=== PATIENT | male | born 1965 | race Caucasian/White ===

== ENCOUNTER → 2016-09-01 | Outpatient (CLI) | payer MEDICAID ==
[~2016-09-01] MED LIST: ASPI-621 PO; ATOR40TA78 PO; FURO20TA3 PO; ISOS60TA36 PO; LISI2.5T PO; METO25TA35 PO; OMNIPAQUE 350 MG/ML, 100ML BOTTLE ONE; SPIR25TA3 PO
== END | disposition home or self-care (01) ==
LOC: RAD 09:20
PROVIDERS: ATTEND Internal Medicine Gastroenterology
DX: K86.3 Pseudocyst of pancreas (principal); J90 Pleural effusion, not elsewhere classified; N20.9 Urinary calculus, unspecified; N20.0 Calculus of kidney; J98.11 Atelectasis; K76.0 Fatty (change of) liver, not elsewhere classified; R19.00 Intra-abdominal and pelvic swelling, mass and lump, unspecified site
CPT/HCPCS: 74160; Q9967

== ENCOUNTER 2016-09-02 16:21 | Inpatient (IN) | payer MEDICAID ==
[~2016-09-02] VITALS: Ht 180.3 cm; Wt 93.7 kg
[2016-09-02] MEDS ORDERED: SODIUM CHLORIDE 0.9% 1,000ML IVBOLUS ONE (17:00)
[2016-09-02] MEDS ORDERED: SODIUM CHLORIDE FLUSH 10ML SYR IVF ONE (17:00)
[2016-09-02] MEDS ORDERED: ONDANSETRON 2MG/ML, 2ML IVPush ONE (17:00)
[2016-09-02 17:18] LABS: ASPARTATE AMINO TRANSFERASE 34 U/L (15-37); BLOOD UREA NITROGEN 15 mg/dL (7-18)
[2016-09-02] MEDS ORDERED: MORPHINE SULFATE 4 MG/ML, 1ML IVPush ONE (17:30)
[2016-09-02] MEDS ORDERED: ONDANSETRON 2MG/ML, 2ML ONE (17:32)
[2016-09-02] MEDS ORDERED: MORPHINE SULFATE 4 MG/ML, 1ML ONE (17:33)
[2016-09-02] MEDS ORDERED: SODIUM CHLORIDE 0.9% 1,000 ML IV ONE (18:16)
[2016-09-02] MEDS ORDERED: MORPHINE SULFATE 4 MG/ML, 1ML IVPush PRN (18:30)
[2016-09-02] MEDS ORDERED: SODIUM CHLORIDE FLUSH 10ML SYR IVF PRN (18:30)
[2016-09-02] MEDS ORDERED: ONDANSETRON 2MG/ML, 2ML IVPush PRN (18:30)
[2016-09-02] MEDS: SODIUM CHLORIDE 0.9% 1,000 ML IV SCH (23:36)
[2016-09-03 00:32] VITALS: BP 116/78
[2016-09-03 01:12] VITALS: BP 100/66
[2016-09-03] MEDS ORDERED: SPIR25TA3 PO (01:48)
[2016-09-03] MEDS ORDERED: FURO20TA3 PO (01:48)
[2016-09-03] MEDS ORDERED: ATOR40TA78 PO (01:51)
[2016-09-03] MEDS ORDERED: ASPI-621 PO (01:54)
[2016-09-03] MEDS ORDERED: METO25TA35 PO (01:56)
[2016-09-03] MEDS ORDERED: LISI2.5T PO (02:11)
[2016-09-03] MEDS ORDERED: ISOS60TA36 PO (02:15)
[2016-09-03] MEDS: HYDROcodone/APAP 5/325 TABLET PO PRN ×4 (03:34→23:09)
[2016-09-03 05:51] LABS: ASPARTATE AMINO TRANSFERASE 29 U/L (15-37); BLOOD UREA NITROGEN 14 mg/dL (7-18)
[2016-09-03 08:48] VITALS: BP 147/92
[2016-09-03] MEDS: PANTOPROZOLE 40MG TABLET PO SCH ×2 (09:00→19:56)
[2016-09-03] MEDS: ENOXAPARIN 40 MG/0.4 ML SQ SCH (09:00)
[2016-09-03] MEDS: SODIUM CHLORIDE 0.9% 1,000 ML IV SCH ×2 (13:00→23:11)
[2016-09-03 15:51] VITALS: BP 138/93
[2016-09-03 20:38] VITALS: BP 128/88
[2016-09-04 03:00] VITALS: BP 118/81
[2016-09-04 08:49] VITALS: BP 110/74
[2016-09-04] MEDS: ENOXAPARIN 40 MG/0.4 ML SQ SCH (09:00)
[2016-09-04] MEDS: PANTOPROZOLE 40MG TABLET PO SCH ×2 (09:13→21:29)
[2016-09-04] MEDS: SODIUM CHLORIDE 0.9% 1,000 ML IV SCH ×2 (09:14→17:40)
[2016-09-04] MEDS: METOPROLOL TARTRATE 25 MG TABLET PO SCH ×2 (11:00→21:30)
[2016-09-04] MEDS: ISOSORBIDE MONONITRATE ER 60 MG TABLET PO SCH (11:00)
[2016-09-04] MEDS: LISINOPRIL 5 MG TABLET PO SCH (11:00)
[2016-09-04] MEDS: OCTREOTIDE 100MCG/ML, 1ML (0.1MG/ML) SQ SCH ×2 (12:54→21:29)
[2016-09-04 14:26] VITALS: BP 124/86
[2016-09-04 19:51] VITALS: BP 128/91
[2016-09-04] MEDS: HYDROcodone/APAP 5/325 TABLET PO PRN (22:44)
[2016-09-05 02:30] VITALS: BP 110/76
[2016-09-05] MEDS: SODIUM CHLORIDE 0.9% 1,000 ML IV SCH ×2 (04:49→15:38)
[2016-09-05 07:31] VITALS: BP 118/84
[2016-09-05] MEDS: ENOXAPARIN 40 MG/0.4 ML SQ SCH (09:00)
[2016-09-05] MEDS: ISOSORBIDE MONONITRATE ER 60 MG TABLET PO SCH (09:32)
[2016-09-05] MEDS: PANTOPROZOLE 40MG TABLET PO SCH ×2 (09:33→21:45)
[2016-09-05] MEDS: LISINOPRIL 5 MG TABLET PO SCH (09:33)
[2016-09-05] MEDS: METOPROLOL TARTRATE 25 MG TABLET PO SCH ×2 (09:33→21:45)
[2016-09-05] MEDS: OCTREOTIDE 100MCG/ML, 1ML (0.1MG/ML) SQ SCH ×2 (10:59→21:45)
[2016-09-05 12:58] VITALS: BP 104/69
[2016-09-05] MEDS: HYDROcodone/APAP 5/325 TABLET PO PRN ×2 (17:18→23:23)
[2016-09-05 20:23] VITALS: BP 103/79
[2016-09-06] MEDS: SODIUM CHLORIDE 0.9% 1,000 ML IV SCH ×2 (01:00→11:00)
[2016-09-06 03:07] VITALS: BP 101/61
[2016-09-06 05:31] LABS: ASPARTATE AMINO TRANSFERASE 19 U/L (15-37); BLOOD UREA NITROGEN 9 mg/dL (7-18)
[2016-09-06 07:30] VITALS: BP 121/82
[2016-09-06] MEDS: OCTREOTIDE 100MCG/ML, 1ML (0.1MG/ML) SQ SCH (09:00)
[2016-09-06] MEDS: ENOXAPARIN 40 MG/0.4 ML SQ SCH (09:00)
[2016-09-06] MEDS: PANTOPROZOLE 40MG TABLET PO SCH (09:00)
[2016-09-06] MEDS: LISINOPRIL 5 MG TABLET PO SCH (09:11)
[2016-09-06] MEDS: ISOSORBIDE MONONITRATE ER 60 MG TABLET PO SCH (09:11)
[2016-09-06] MEDS: METOPROLOL TARTRATE 25 MG TABLET PO SCH (09:11)
[2016-09-06] MEDS: HYDROcodone/APAP 5/325 TABLET PO PRN (11:19)
[2016-09-06 13:54] VITALS: BP 117/82
[2016-09-06] MEDS ORDERED: PANT40TA5 PO (14:12)
== END 2016-09-06 15:50 | disposition home or self-care (01) | DRG 438 ==
LOC: ED 18:14 → EDIP 18:16 → 3NE 20:00 → DCLOUNGE 09-06 15:10
PROVIDERS: ADMIT Internal Medicine; ATTEND Family Medicine
DX: K86.3 Pseudocyst of pancreas (principal); E43 Unspecified severe protein-calorie malnutrition; K31.1 Adult hypertrophic pyloric stenosis; N40.0 Benign prostatic hyperplasia without lower urinary tract symptoms; K86.1 Other chronic pancreatitis; I25.10 Atherosclerotic heart disease of native coronary artery without angina pectoris; J44.9 Chronic obstructive pulmonary disease, unspecified; G89.29 Other chronic pain; N20.0 Calculus of kidney; K21.9 Gastro-esophageal reflux disease without esophagitis; I10 Essential (primary) hypertension; I25.2 Old myocardial infarction; Z87.891 Personal history of nicotine dependence; Z90.49 Acquired absence of other specified parts of digestive tract; Z82.49 Family history of ischemic heart disease and other diseases of the circulatory system; Z68.28 Body mass index [BMI] 28.0-28.9, adult
CPT/HCPCS: 36415; 80053; 81001; 83036; 83690; 83735; 84100; 85025; 85610; 87086; 93005; 96361; 96374; 96375; J2354; J2405; C8901; J7030

== ENCOUNTER 2016-09-09 09:04 | Day surgery (SDC) | payer MEDICAID ==
[~2016-09-09] VITALS: Ht 180.3 cm; Wt 85.0 kg
[~2016-09-09 09:04] MED LIST changes: -OMNIPAQUE 350 MG/ML, 100ML BOTTLE ONE; +PANT40TA5 PO
[2016-09-09 09:26] VITALS: BP 136/94
[2016-09-09] MEDS ORDERED: LACTATED RINGERS 1,000 ML IV SCH (09:37)
[2016-09-09] MEDS ORDERED: MIDAZOLAM 1 MG/ML, 2ML ONE (10:02)
[2016-09-09] MEDS ORDERED: FENTANYL PF 100 MCG/2ML ONE (10:04)
[2016-09-09] MEDS ORDERED: PROPOFOL 10 MG/ML, 20ML ONE (10:53)
[2016-09-09] MEDS ORDERED: ONDANSETRON 2MG/ML, 2ML ONE (10:53)
[2016-09-09] MEDS ORDERED: DEXAMETHASONE 4 MG/ML, 1ML ONE (10:53)
[2016-09-09] MEDS ORDERED: HYDROmorphone 1 MG/ML, 1ML IV PRN (11:30)
[2016-09-09] MEDS ORDERED: ONDANSETRON 2MG/ML, 2ML IVPush PRN (11:30)
[2016-09-09] MEDS ORDERED: FENTANYL PF 100 MCG/2ML IV PRN (11:30)
[2016-09-09] MEDS ORDERED: MIDAZOLAM 1 MG/ML, 2ML IV PRN (11:30)
[2016-09-09] MEDS ORDERED: OXYcodone 5 MG/5 ML ORAL.SOL UDC PO PRN (11:30)
== END 2016-09-09 14:35 | disposition home or self-care (01) ==
LOC: OUT 09:04
PROVIDERS: ATTEND Internal Medicine Gastroenterology
DX: K86.3 Pseudocyst of pancreas (principal); I25.10 Atherosclerotic heart disease of native coronary artery without angina pectoris; J44.9 Chronic obstructive pulmonary disease, unspecified; K21.9 Gastro-esophageal reflux disease without esophagitis; Z90.49 Acquired absence of other specified parts of digestive tract; Z87.891 Personal history of nicotine dependence
CPT/HCPCS: 43240; C1874; J1100; J2250; J2405; J2704; J3010; J7120

== ENCOUNTER 2016-09-10 16:16 | Inpatient (IN) | payer MEDICAID ==
[~2016-09-10] VITALS: Ht 180.3 cm; Wt 81.0 kg
[2016-09-10] MEDS ORDERED: SODIUM CHLORIDE FLUSH 10ML SYR IVF ONE (18:30)
[2016-09-10] MEDS ORDERED: SODIUM CHLORIDE 0.9% 1,000ML IVBOLUS ONE (18:30)
[2016-09-10 19:02] LABS: ASPARTATE AMINO TRANSFERASE 13 U/L (15-37); BLOOD UREA NITROGEN 12 mg/dL (7-18)
[2016-09-10] MEDS ORDERED: PIPERACILLIN/TAZO/PMX 3.375GM 50 ML ONE (19:25)
[2016-09-10] MEDS ORDERED: PIPERACILLIN/TAZO 3.375 GM in SODIUM CHLORIDE 0.9% 50 ML IVPB ONE (19:30)
[2016-09-10] MEDS ORDERED: ACETAMINOPHEN 325 MG TABLET PO ONE ×2 (19:30→22:30)
[2016-09-10] MEDS ORDERED: MORPHINE SULFATE 4 MG/ML, 1ML IVPush PRN (19:30)
[2016-09-10] MEDS ORDERED: ONDANSETRON 2MG/ML, 2ML IVPush ONE (19:30)
[2016-09-10] MEDS ORDERED: OMNIPAQUE 350 MG/ML, 100ML BOTTLE ONE (20:00)
[2016-09-10] MEDS ORDERED: MORPHINE SULFATE 4 MG/ML, 1ML ONE (20:10)
[2016-09-10] MEDS ORDERED: ACETAMINOPHEN 325 MG TABLET ONE (20:10)
[2016-09-10] MEDS ORDERED: ONDANSETRON 2MG/ML, 2ML ONE (20:11)
[2016-09-10] MEDS ORDERED: SODIUM CHLORIDE 0.9%, 500ML IVBOLUS ONE (22:30)
[2016-09-10] MEDS ORDERED: VANCOMYCIN PER PHARMACY IV ONE (22:30)
[2016-09-10] MEDS ORDERED: VANCOMYCIN PER PHARMACY MC PRN (23:00)
[2016-09-10] MEDS: ENOXAPARIN 40 MG/0.4 ML SQ SCH (23:00)
[2016-09-10] MEDS ORDERED: PHARMACOKINETIC CONSULTATION MC ONE ×2 (23:00→23:45)
[2016-09-10] MEDS ORDERED: VANCOMYCIN 1,600 MG in SODIUM CHLORIDE 0.9% 250 ML IV ONE (23:00)
[2016-09-10] MEDS ORDERED: ONDANSETRON 2MG/ML, 2ML IVPush PRN (23:00)
[2016-09-10 23:45] VITALS: BP 106/71
[2016-09-10] MEDS ORDERED: PHARMACOKINETIC MONITORING MC PRN (23:45)
[2016-09-11] MEDS: SODIUM CHLORIDE 0.9% 1,000 ML IV SCH ×6 (00:49→23:55)
[2016-09-11] MEDS: PIPERACILLIN/TAZO 3.375 GM in SODIUM CHLORIDE 0.9% 50 ML IV SCH ×4 (00:50→19:12)
[2016-09-11] MEDS: ENOXAPARIN 40 MG/0.4 ML SQ SCH ×2 (00:50→23:30)
[2016-09-11 02:00] VITALS: BP 107/58
[2016-09-11] MEDS: morphine SULFATE 10 MG/ML, 1ML IVPush PRN ×3 (05:03→19:13)
[2016-09-11] MEDS: ACETAMINOPHEN 325 MG TABLET PO PRN ×2 (05:03→21:57)
[2016-09-11 05:16] LABS: BLOOD UREA NITROGEN 13 mg/dL (7-18)
[2016-09-11 05:20] LABS: ASPARTATE AMINO TRANSFERASE 12 U/L (15-37)
[2016-09-11 05:25] LABS: PATH.CAST-FLAG NOT PRESENT; SPERM-FLAG NOT PRESENT; SRC-FLAG NOT PRESENT; XTAL-FLAG NOT PRESENT; YLC-FLAG NOT PRESENT
[2016-09-11 06:54] VITALS: BP 95/58
[2016-09-11] MEDS: PANTOPROZOLE 40MG TABLET PO SCH ×2 (07:52→21:57)
[2016-09-11] MEDS: VANCOMYCIN 1,600 MG in SODIUM CHLORIDE 0.9% 250 ML IV SCH ×2 (11:46→23:30)
[2016-09-11 12:35] VITALS: BP 101/63
[2016-09-11] MEDS ORDERED: MAGNESIUM SULFATE PMX 2GM/50ML 50 ML IV ONE (13:00)
[2016-09-11] MEDS ORDERED: POTASSIUM PHOSPHATE 44 MEQ in SODIUM CHLORIDE 0.9% 500 ML IV ONE (13:00)
[2016-09-11 20:00] VITALS: BP 102/65
[2016-09-11] MEDS: ATORVASTATIN 40 MG TABLET PO SCH (21:57)
[2016-09-12 02:00] VITALS: BP 107/70
[2016-09-12] MEDS: PIPERACILLIN/TAZO 3.375 GM in SODIUM CHLORIDE 0.9% 50 ML IV SCH ×2 (02:19→08:39)
[2016-09-12] MEDS: morphine SULFATE 10 MG/ML, 1ML IVPush PRN ×3 (03:51→19:50)
[2016-09-12 05:11] LABS: BLOOD UREA NITROGEN 7 mg/dL (7-18)
[2016-09-12 05:15] LABS: ASPARTATE AMINO TRANSFERASE 9 U/L (15-37)
[2016-09-12] MEDS: SODIUM CHLORIDE 0.9% 1,000 ML IV SCH ×5 (05:54→22:30)
[2016-09-12] MEDS: PANTOPROZOLE 40MG TABLET PO SCH ×2 (08:39→19:49)
[2016-09-12 08:41] VITALS: BP 123/79
[2016-09-12 10:04] LABS: RAPID INFLUENZA A Negative (Negative); RAPID INFLUENZA B Negative (Negative)
[2016-09-12] MEDS: VANCOMYCIN 1,600 MG in SODIUM CHLORIDE 0.9% 250 ML IV SCH (12:12)
[2016-09-12 12:33] LABS: OCCBLD OBC PASS
[2016-09-12 14:00] VITALS: BP 115/70
[2016-09-12] MEDS: MEROPENEM 1 GM in SODIUM CHLORIDE 0.9% 100 ML IV SCH ×2 (14:58→23:08)
[2016-09-12] MEDS: ENOXAPARIN 40 MG/0.4 ML SQ SCH (19:49)
[2016-09-12] MEDS: ATORVASTATIN 40 MG TABLET PO SCH (19:49)
[2016-09-12 20:00] VITALS: BP 126/73
[2016-09-13] MEDS: morphine SULFATE 10 MG/ML, 1ML IVPush PRN ×6 (00:03→21:55)
[2016-09-13 02:00] VITALS: BP 128/80
[2016-09-13] MEDS: SODIUM CHLORIDE 0.9% 1,000 ML IV SCH ×4 (03:24→20:20)
[2016-09-13 05:55] LABS: ASPARTATE AMINO TRANSFERASE 13 U/L (15-37); BLOOD UREA NITROGEN 3 mg/dL (7-18)
[2016-09-13] MEDS: MEROPENEM 1 GM in SODIUM CHLORIDE 0.9% 100 ML IV SCH ×3 (06:30→23:11)
[2016-09-13] MEDS ORDERED: POTASSIUM CHLORIDE 40 MEQ in SODIUM CHLORIDE 0.9% 500 ML IV ONE (07:30)
[2016-09-13 07:43] VITALS: BP 120/75
[2016-09-13] MEDS ORDERED: MAGNESIUM SULFATE PMX 2GM/50ML 50 ML IV ONE (08:00)
[2016-09-13] MEDS: PANTOPROZOLE 40MG TABLET PO SCH ×2 (08:38→20:20)
[2016-09-13] MEDS ORDERED: NITROGLYCERIN 0.4 MG BOTTLE (25 TABS) SL PRN (10:00)
[2016-09-13 10:20] LABS: IS PT STATUS REG ER OR PRE ER? NO
[2016-09-13] MEDS ORDERED: HEPARIN 25,000 UNITS/500ML PMX 500 ML IV PRN (12:30)
[2016-09-13 14:07] VITALS: BP 122/86
[2016-09-13 16:25] LABS: IS PT STATUS REG ER OR PRE ER? NO
[2016-09-13 20:01] VITALS: BP 118/81
[2016-09-13] MEDS: ATORVASTATIN 40 MG TABLET PO SCH (20:20)
[2016-09-13] MEDS ORDERED: METOPROLOL TARTRATE 25 MG TABLET PO SCH (21:00)
[2016-09-13] MEDS: METOPROLOL TARTRATE 25 MG TABLET PO SCH (21:55)
[2016-09-14] MEDS: SODIUM CHLORIDE 0.9% 1,000 ML IV SCH ×5 (01:09→23:38)
[2016-09-14] MEDS: morphine SULFATE 10 MG/ML, 1ML IVPush PRN ×5 (01:09→22:56)
[2016-09-14 01:48] VITALS: BP 118/81
[2016-09-14] MEDS: METOPROLOL TARTRATE 25 MG TABLET PO SCH ×3 (05:53→19:47)
[2016-09-14] MEDS: MEROPENEM 1 GM in SODIUM CHLORIDE 0.9% 100 ML IV SCH ×3 (07:00→20:01)
[2016-09-14 07:09] VITALS: BP 112/71
[2016-09-14 09:35] LABS: BLOOD UREA NITROGEN 1 mg/dL (7-18)
[2016-09-14 09:54] LABS: DIFF TOTAL CELLS COUNTED 100 CELL DIFF
[2016-09-14 09:57] LABS: VERIFY COUNTS? YES
[2016-09-14] MEDS: LISINOPRIL 5 MG TABLET PO SCH (10:10)
[2016-09-14] MEDS: PANTOPROZOLE 40MG TABLET PO SCH ×2 (10:10→19:47)
[2016-09-14] MEDS: ISOSORBIDE MONONITRATE ER 60 MG TABLET PO SCH (10:10)
[2016-09-14 10:26] LABS: IS PT STATUS REG ER OR PRE ER? NO
[2016-09-14 12:46] VITALS: BP 111/65
[2016-09-14] MEDS ORDERED: MIDAZOLAM 1 MG/ML, 2ML ONE (14:25)
[2016-09-14] MEDS ORDERED: FENTANYL PF 250 MCG/5ML ONE (14:25)
[2016-09-14] MEDS ORDERED: ALBUTEROL SULFATE 200 PUFFS/8.5 GR INH ONE (14:51)
[2016-09-14] MEDS ORDERED: METOPROLOL 1 MG/ML, 5ML ONE (14:51)
[2016-09-14] MEDS ORDERED: SUCCINYLCHOLINE 20 MG/ML, 10ML ONE (14:51)
[2016-09-14] MEDS ORDERED: PROPOFOL 10 MG/ML, 20ML ONE (14:51)
[2016-09-14] MEDS ORDERED: ESMOLOL 100 MG/10 ML ONE (14:51)
[2016-09-14] MEDS ORDERED: OXYcodone 5 MG/5 ML ORAL.SOL UDC PO PRN (15:30)
[2016-09-14] MEDS ORDERED: hydrALAzine 20 MG/ML, 1ML IV PRN (15:30)
[2016-09-14] MEDS ORDERED: ALBUTEROL/IPRATROPIUM 2.5MG/0.5MG, 3 ML NPPB PRN (15:30)
[2016-09-14] MEDS ORDERED: FENTANYL PF 100 MCG/2ML IV PRN (15:30)
[2016-09-14] MEDS ORDERED: ACETAMINOPHEN 325 MG TABLET PO PRN (15:30)
[2016-09-14] MEDS ORDERED: METOPROLOL 1 MG/ML, 5ML IV PRN (15:30)
[2016-09-14] MEDS ORDERED: MEPERIDINE/PF 25MG/0.5ML IVPush PRN (15:30)
[2016-09-14] MEDS ORDERED: ALBUTEROL SULFATE 2.5 MG/3 ML ONE (16:53)
[2016-09-14] MEDS: HYDROmorphone 1 MG/ML, 1ML IV PRN ×4 (17:00→17:25)
[2016-09-14] MEDS ORDERED: PIPERACILLIN/TAZO/PMX 3.375GM 50 ML ONE (17:06)
[2016-09-14] MEDS ORDERED: HYDROmorphone 1 MG/ML, 1ML ONE ×2 (17:11→17:19)
[2016-09-14] MEDS ORDERED: PIPERACILLIN/TAZO 3.375 GM in SODIUM CHLORIDE 0.9% 50 ML IV ONE (18:00)
[2016-09-14] MEDS: ATORVASTATIN 40 MG TABLET PO SCH (19:47)
[2016-09-15] MEDS: morphine SULFATE 10 MG/ML, 1ML IVPush PRN ×6 (01:56→22:56)
[2016-09-15] MEDS: SODIUM CHLORIDE 0.9% 1,000 ML IV SCH ×5 (03:22→20:44)
[2016-09-15] MEDS: MEROPENEM 1 GM in SODIUM CHLORIDE 0.9% 100 ML IV SCH ×3 (03:23→20:44)
[2016-09-15] MEDS: METOPROLOL TARTRATE 25 MG TABLET PO SCH ×3 (03:35→22:30)
[2016-09-15 04:44] LABS: BLOOD UREA NITROGEN 2 mg/dL (7-18)
[2016-09-15 05:09] VITALS: BP 98/62
[2016-09-15] MEDS: PANTOPROZOLE 40MG TABLET PO SCH ×2 (08:24→20:42)
[2016-09-15] MEDS: ISOSORBIDE MONONITRATE ER 60 MG TABLET PO SCH (08:25)
[2016-09-15] MEDS: LISINOPRIL 5 MG TABLET PO SCH (08:25)
[2016-09-15 20:20] VITALS: BP 129/84
[2016-09-15] MEDS: ATORVASTATIN 40 MG TABLET PO SCH (20:42)
[2016-09-15] MEDS: ACETAMINOPHEN 325 MG TABLET PO PRN (20:43)
[2016-09-15 22:29] VITALS: BP 120/71
[2016-09-16 00:31] VITALS: BP 130/81
[2016-09-16] MEDS: ACETAMINOPHEN 325 MG TABLET PO PRN ×4 (00:57→20:14)
[2016-09-16] MEDS: SODIUM CHLORIDE 0.9% 1,000 ML IV SCH ×3 (03:56→23:57)
[2016-09-16] MEDS: MEROPENEM 1 GM in SODIUM CHLORIDE 0.9% 100 ML IV SCH ×3 (03:56→20:14)
[2016-09-16] MEDS: morphine SULFATE 10 MG/ML, 1ML IVPush PRN ×4 (03:56→23:57)
[2016-09-16 05:42] LABS: ASPARTATE AMINO TRANSFERASE 50 U/L (15-37); BLOOD UREA NITROGEN 3 mg/dL (7-18)
[2016-09-16 06:12] VITALS: BP 108/72
[2016-09-16] MEDS: METOPROLOL TARTRATE 25 MG TABLET PO SCH ×3 (06:14→22:31)
[2016-09-16 07:01] VITALS: BP 132/72
[2016-09-16] MEDS ORDERED: OMNIPAQUE 350 MG/ML, 100ML BOTTLE ONE (09:24)
[2016-09-16] MEDS: LISINOPRIL 5 MG TABLET PO SCH (10:28)
[2016-09-16] MEDS: PANTOPROZOLE 40MG TABLET PO SCH ×2 (10:28→21:25)
[2016-09-16] MEDS: ISOSORBIDE MONONITRATE ER 60 MG TABLET PO SCH (10:28)
[2016-09-16 13:05] VITALS: BP 108/60
[2016-09-16] MEDS ORDERED: POTASSIUM CHLORIDE 20 MEQ TAB.ER.PRT PO ONE (15:00)
[2016-09-16] MEDS ORDERED: PHARMACOKINETIC MONITORING MC PRN (15:30)
[2016-09-16] MEDS ORDERED: PHARMACOKINETIC CONSULTATION MC ONE (15:30)
[2016-09-16] MEDS ORDERED: VANCOMYCIN PER PHARMACY MC PRN (15:30)
[2016-09-16] MEDS: MICAFUNGIN 100 MG in SODIUM CHLORIDE 0.9% 100 ML IV SCH (15:51)
[2016-09-16] MEDS: VANCOMYCIN 1,800 MG in SODIUM CHLORIDE 0.9% 250 ML IV SCH (17:27)
[2016-09-16 18:58] VITALS: BP 122/75
[2016-09-16] MEDS: ATORVASTATIN 40 MG TABLET PO SCH (21:25)
[2016-09-16 22:25] VITALS: BP 109/67
[2016-09-17 02:29] VITALS: BP 119/75
[2016-09-17] MEDS: MEROPENEM 1 GM in SODIUM CHLORIDE 0.9% 100 ML IV SCH ×3 (03:48→19:42)
[2016-09-17 05:20] VITALS: BP 141/82
[2016-09-17] MEDS: VANCOMYCIN 1,800 MG in SODIUM CHLORIDE 0.9% 250 ML IV SCH ×2 (05:25→17:25)
[2016-09-17] MEDS: METOPROLOL TARTRATE 25 MG TABLET PO SCH ×3 (05:26→21:34)
[2016-09-17] MEDS: SODIUM CHLORIDE 0.9% 1,000 ML IV SCH ×2 (05:26→21:33)
[2016-09-17 05:43] LABS: BLOOD UREA NITROGEN 4 mg/dL (7-18)
[2016-09-17 05:46] LABS: ASPARTATE AMINO TRANSFERASE 69 U/L (15-37)
[2016-09-17] MEDS: morphine SULFATE 10 MG/ML, 1ML IVPush PRN ×4 (06:28→21:33)
[2016-09-17] MEDS ORDERED: POTASSIUM CHLORIDE 40 MEQ in SODIUM CHLORIDE 0.9% 500 ML IV ONE (07:30)
[2016-09-17 07:54] VITALS: BP 123/83
[2016-09-17] MEDS: PANTOPROZOLE 40MG TABLET PO SCH ×2 (08:20→21:34)
[2016-09-17] MEDS: LISINOPRIL 5 MG TABLET PO SCH (08:20)
[2016-09-17] MEDS: ISOSORBIDE MONONITRATE ER 60 MG TABLET PO SCH (08:20)
[2016-09-17 12:35] VITALS: BP 127/86
[2016-09-17] MEDS: MICAFUNGIN 100 MG in SODIUM CHLORIDE 0.9% 100 ML IV SCH (16:15)
[2016-09-17 18:27] VITALS: BP 134/86
[2016-09-17] MEDS: ACETAMINOPHEN 325 MG TABLET PO PRN (19:55)
[2016-09-17] MEDS: ATORVASTATIN 40 MG TABLET PO SCH (21:34)
[2016-09-18 01:48] VITALS: BP 119/74
[2016-09-18] MEDS: MEROPENEM 1 GM in SODIUM CHLORIDE 0.9% 100 ML IV SCH ×4 (03:35→21:29)
[2016-09-18] MEDS: SODIUM CHLORIDE 0.9% 1,000 ML IV SCH (03:36)
[2016-09-18 05:16] LABS: BLOOD UREA NITROGEN 5 mg/dL (7-18)
[2016-09-18] MEDS: VANCOMYCIN 1,800 MG in SODIUM CHLORIDE 0.9% 250 ML IV SCH (05:48)
[2016-09-18] MEDS: METOPROLOL TARTRATE 25 MG TABLET PO SCH ×3 (05:48→21:28)
[2016-09-18] MEDS: morphine SULFATE 10 MG/ML, 1ML IVPush PRN ×3 (05:48→23:47)
[2016-09-18] MEDS ORDERED: POTASSIUM CHLORIDE 40 MEQ in SODIUM CHLORIDE 0.9% 500 ML IV ONE (07:30)
[2016-09-18 08:24] VITALS: BP 108/74
[2016-09-18] MEDS: LISINOPRIL 5 MG TABLET PO SCH (09:12)
[2016-09-18] MEDS: ISOSORBIDE MONONITRATE ER 60 MG TABLET PO SCH (09:12)
[2016-09-18] MEDS: PANTOPROZOLE 40MG TABLET PO SCH ×2 (09:12→21:28)
[2016-09-18] MEDS: MICAFUNGIN 100 MG in SODIUM CHLORIDE 0.9% 100 ML IV SCH (14:41)
[2016-09-18] MEDS ORDERED: FUROSEMIDE 20 MG/2 ML IV ONE (15:00)
[2016-09-18 16:00] VITALS: BP 115/73
[2016-09-18 21:25] VITALS: BP 113/73
[2016-09-18] MEDS: ATORVASTATIN 40 MG TABLET PO SCH (21:28)
[2016-09-18] MEDS ORDERED: VANCOMYCIN 1,800 MG in SODIUM CHLORIDE 0.9% 250 ML IV SCH (23:00)
[2016-09-19 06:47] LABS: BLOOD UREA NITROGEN 4 mg/dL (7-18)
[2016-09-19] MEDS: MEROPENEM 1 GM in SODIUM CHLORIDE 0.9% 100 ML IV SCH ×2 (13:30→21:30)
[2016-09-19] MEDS: VANCOMYCIN 1,800 MG in SODIUM CHLORIDE 0.9% 250 ML IV SCH (18:00)
[2016-09-19] MEDS: PANTOPROZOLE 40MG TABLET PO SCH (21:00)
[2016-09-19] MEDS: METOPROLOL TARTRATE 25 MG TABLET PO SCH (22:00)
[2016-09-19] MEDS ORDERED: MORPHINE SULFATE 4 MG/ML, 1ML ONE (23:43)
[2016-09-20] MEDS: MEROPENEM 1 GM in SODIUM CHLORIDE 0.9% 100 ML IV SCH ×4 (05:30→22:52)
[2016-09-20] MEDS: METOPROLOL TARTRATE 25 MG TABLET PO SCH ×4 (06:00→22:00)
[2016-09-20] MEDS: VANCOMYCIN 1,800 MG in SODIUM CHLORIDE 0.9% 250 ML IV SCH ×2 (06:00→18:00)
[2016-09-20] MEDS: LISINOPRIL 5 MG TABLET PO SCH ×2 (09:00→10:55)
[2016-09-20] MEDS: PANTOPROZOLE 40MG TABLET PO SCH ×3 (09:00→20:31)
[2016-09-20 09:20] VITALS: BP 128/88
[2016-09-20] MEDS ORDERED: OXYcodone IR 5MG TABLET ONE ×2 (10:51→16:25)
[2016-09-20] MEDS: ISOSORBIDE MONONITRATE ER 60 MG TABLET PO SCH (10:55)
[2016-09-20] MEDS: OXYcodone IR 5MG TABLET PO PRN ×3 (10:55→20:28)
[2016-09-20] MEDS ORDERED: FUROSEMIDE 20 MG/2 ML ONE (12:06)
[2016-09-20] MEDS ORDERED: FUROSEMIDE 20 MG/2 ML IV ONE (12:30)
[2016-09-20] MEDS: morphine SULFATE 10 MG/ML, 1ML IVPush PRN (13:58)
[2016-09-20 15:23] VITALS: BP 114/83
[2016-09-20] MEDS: MICAFUNGIN 100 MG in SODIUM CHLORIDE 0.9% 100 ML IV SCH ×2 (15:30→16:30)
[2016-09-20] MEDS ORDERED: OXYcodone IR 5MG TABLET PO PRN (16:30)
[2016-09-20] MEDS ORDERED: POTASSIUM CHLORIDE 20 MEQ PACKET PO SCH (18:30)
[2016-09-20] MEDS: ATORVASTATIN 40 MG TABLET PO SCH ×2 (20:28→21:00)
[2016-09-20 21:30] VITALS: BP 105/67
[2016-09-21 03:00] VITALS: BP 112/76
[2016-09-21] MEDS: OXYcodone IR 5MG TABLET PO PRN ×3 (03:14→11:57)
[2016-09-21 06:00] LABS: BLOOD UREA NITROGEN 5 mg/dL (7-18)
[2016-09-21 06:06] LABS: ASPARTATE AMINO TRANSFERASE 35 U/L (15-37)
[2016-09-21] MEDS: METOPROLOL TARTRATE 25 MG TABLET PO SCH ×3 (07:25→21:01)
[2016-09-21] MEDS: MEROPENEM 1 GM in SODIUM CHLORIDE 0.9% 100 ML IV SCH ×2 (07:25→16:30)
[2016-09-21] MEDS ORDERED: POTASSIUM CHLORIDE 20 MEQ TAB.ER.PRT PO ONE (07:30)
[2016-09-21 07:48] VITALS: BP 114/78
[2016-09-21] MEDS: VANCOMYCIN 1,800 MG in SODIUM CHLORIDE 0.9% 250 ML IV SCH ×2 (08:04→17:49)
[2016-09-21] MEDS: POTASSIUM CHLORIDE 20 MEQ PACKET PO SCH ×3 (08:05→17:49)
[2016-09-21] MEDS: ENOXAPARIN 40 MG/0.4 ML SQ SCH (08:05)
[2016-09-21] MEDS: LISINOPRIL 5 MG TABLET PO SCH (08:11)
[2016-09-21] MEDS: ISOSORBIDE MONONITRATE ER 60 MG TABLET PO SCH (08:11)
[2016-09-21] MEDS: PANTOPROZOLE 40MG TABLET PO SCH ×2 (08:11→21:01)
[2016-09-21 13:45] VITALS: BP 143/85
[2016-09-21] MEDS: MICAFUNGIN 100 MG in SODIUM CHLORIDE 0.9% 100 ML IV SCH (15:21)
[2016-09-21] MEDS ORDERED: POTASSIUM CHLORIDE 20 MEQ PACKET PO SCH (18:30)
[2016-09-21 19:38] VITALS: BP 119/80
[2016-09-21] MEDS: ATORVASTATIN 40 MG TABLET PO SCH (21:01)
[2016-09-22] MEDS: OXYcodone IR 5MG TABLET PO PRN ×4 (00:51→21:00)
[2016-09-22] MEDS: MEROPENEM 1 GM in SODIUM CHLORIDE 0.9% 100 ML IV SCH ×3 (00:51→18:07)
[2016-09-22 01:10] VITALS: BP 105/70
[2016-09-22 05:31] VITALS: BP 113/79
[2016-09-22] MEDS: METOPROLOL TARTRATE 25 MG TABLET PO SCH ×3 (05:32→21:39)
[2016-09-22] MEDS: VANCOMYCIN 1,800 MG in SODIUM CHLORIDE 0.9% 250 ML IV SCH (05:32)
[2016-09-22] MEDS: ENOXAPARIN 40 MG/0.4 ML SQ SCH (08:32)
[2016-09-22] MEDS: LISINOPRIL 5 MG TABLET PO SCH (08:32)
[2016-09-22] MEDS: ISOSORBIDE MONONITRATE ER 60 MG TABLET PO SCH (08:32)
[2016-09-22] MEDS: PANTOPROZOLE 40MG TABLET PO SCH ×2 (08:32→21:00)
[2016-09-22 08:33] VITALS: BP 116/78
[2016-09-22] MEDS ORDERED: POTASSIUM CHLORIDE 20 MEQ PACKET PO SCH (09:00)
[2016-09-22 13:20] VITALS: BP 105/70
[2016-09-22] MEDS: MICAFUNGIN 100 MG in SODIUM CHLORIDE 0.9% 100 ML IV SCH (16:43)
[2016-09-22 18:47] VITALS: BP 98/64
[2016-09-22] MEDS: ATORVASTATIN 40 MG TABLET PO SCH (21:00)
[2016-09-23] MEDS: VANCOMYCIN 1,800 MG in SODIUM CHLORIDE 0.9% 250 ML IV SCH ×2 (00:25→18:08)
[2016-09-23 02:07] VITALS: BP 113/76
[2016-09-23] MEDS: MEROPENEM 1 GM in SODIUM CHLORIDE 0.9% 100 ML IV SCH ×3 (03:28→21:45)
[2016-09-23 04:48] LABS: BLOOD UREA NITROGEN 6 mg/dL (7-18)
[2016-09-23 04:51] LABS: ASPARTATE AMINO TRANSFERASE 22 U/L (15-37)
[2016-09-23] MEDS: METOPROLOL TARTRATE 25 MG TABLET PO SCH ×3 (06:08→21:50)
[2016-09-23] MEDS: ENOXAPARIN 40 MG/0.4 ML SQ SCH ×2 (07:30→08:36)
[2016-09-23 07:32] VITALS: BP 103/71
[2016-09-23] MEDS: PANTOPROZOLE 40MG TABLET PO SCH ×2 (08:36→21:45)
[2016-09-23] MEDS: ISOSORBIDE MONONITRATE ER 60 MG TABLET PO SCH (09:00)
[2016-09-23] MEDS: LISINOPRIL 5 MG TABLET PO SCH (09:00)
[2016-09-23] MEDS ORDERED: OMNIPAQUE 350 MG/ML, 100ML BOTTLE ONE (11:02)
[2016-09-23 13:13] VITALS: BP 105/68
[2016-09-23] MEDS: MICAFUNGIN 100 MG in SODIUM CHLORIDE 0.9% 100 ML IV SCH (16:09)
[2016-09-23 19:43] VITALS: BP 120/81
[2016-09-23] MEDS: OXYcodone IR 5MG TABLET PO PRN (21:45)
[2016-09-23] MEDS: ATORVASTATIN 40 MG TABLET PO SCH (21:45)
[2016-09-24 01:55] VITALS: BP 107/73
[2016-09-24] MEDS: MEROPENEM 1 GM in SODIUM CHLORIDE 0.9% 100 ML IV SCH (04:48)
[2016-09-24] MEDS: METOPROLOL TARTRATE 25 MG TABLET PO SCH (06:09)
[2016-09-24 07:43] VITALS: BP 103/72
[2016-09-24] MEDS: LISINOPRIL 5 MG TABLET PO SCH (09:00)
[2016-09-24] MEDS: OXYcodone IR 5MG TABLET PO PRN (09:07)
[2016-09-24] MEDS: ISOSORBIDE MONONITRATE ER 60 MG TABLET PO SCH (09:08)
[2016-09-24] MEDS: ENOXAPARIN 40 MG/0.4 ML SQ SCH (09:08)
[2016-09-24] MEDS: PANTOPROZOLE 40MG TABLET PO SCH (09:09)
[2016-09-24] MEDS ORDERED: METR500T PO (09:59)
[2016-09-24] MEDS ORDERED: ISOS60TA36 PO (09:59)
[2016-09-24] MEDS ORDERED: PANT40TA5 PO (09:59)
[2016-09-24] MEDS ORDERED: METO25TA35 PO (09:59)
[2016-09-24] MEDS ORDERED: ATOR40TA78 PO (09:59)
[2016-09-24] MEDS ORDERED: FLUC200T4 PO (09:59)
[2016-09-24] MEDS ORDERED: LISI2.5T PO (09:59)
[2016-09-24] MEDS ORDERED: LEVO750T26 PO (10:45)
[2016-09-24] MEDS ORDERED: OXYC5TAB3 PO (10:45)
[2016-09-26 07:07] VITALS: BP 101/69
== END 2016-09-24 12:15 | disposition home or self-care (01) | DRG 872 ==
LOC: ED 19:28 → EDIP 22:37 → 4EST 23:31 → CCU 09-14 18:15 → 5SO 09-15 20:20 → 3NE 09-22 10:30
PROVIDERS: ADMIT Hospitalist
PROC: 0DB68ZZ Excision of Stomach, Via Natural or Artificial Opening Endoscopic (ICD-10-PCS; principal; 2016-09-14 15:00)
DX: A41.9 Sepsis, unspecified organism (principal); N13.2 Hydronephrosis with renal and ureteral calculous obstruction; K86.3 Pseudocyst of pancreas; K86.1 Other chronic pancreatitis; E87.1 Hypo-osmolality and hyponatremia; E46 Unspecified protein-calorie malnutrition; I95.9 Hypotension, unspecified; I25.2 Old myocardial infarction; I25.10 Atherosclerotic heart disease of native coronary artery without angina pectoris; G89.29 Other chronic pain; J44.9 Chronic obstructive pulmonary disease, unspecified; I10 Essential (primary) hypertension; E87.6 Hypokalemia; I08.1 Rheumatic disorders of both mitral and tricuspid valves; Z95.1 Presence of aortocoronary bypass graft; Z87.891 Personal history of nicotine dependence; F15.90 Other stimulant use, unspecified, uncomplicated; K76.9 Liver disease, unspecified; E78.5 Hyperlipidemia, unspecified; D64.9 Anemia, unspecified; D47.3 Essential (hemorrhagic) thrombocythemia; I11.9 Hypertensive heart disease without heart failure; Z82.49 Family history of ischemic heart disease and other diseases of the circulatory system; Z87.442 Personal history of urinary calculi; Z90.49 Acquired absence of other specified parts of digestive tract; Z93.1 Gastrostomy status; Z68.24 Body mass index [BMI] 24.0-24.9, adult
CPT/HCPCS: 36415; 71010; 74000; 74020; 74170; 74177; 76700; 80048; 80053; 80202; 81001; 81003; 82272; 83605; 83690; 83735; 84100; 84145; 84484; 85025; 85610; 85730; 87040; 87081; 87400; 93005; 93306; 96361; 96365; 96375; J1170; J1650; J2185; J2248; J2250; J2405; J2543; J2704; J3010; J3370; J3480; Q9967; J0330; J1940; J2270; J3475; J7030; J7040; J7050

== ENCOUNTER 2016-09-26 06:48 | Day surgery (SDC) | payer MEDICAID ==
[~2016-09-26 06:48] MED LIST changes: +FLUC200T4 PO; +LEVO750T26 PO; +METR500T PO; +OXYC5TAB3 PO
[2016-09-26] MEDS ORDERED: METOPROLOL 1 MG/ML, 5ML IV PRN (07:30)
[2016-09-26] MEDS ORDERED: PIPERACILLIN/TAZO 3.375 GM in SODIUM CHLORIDE 0.9% 50 ML IV ONE (07:30)
[2016-09-26] MEDS ORDERED: LABETALOL 5MG/ML, 20ML IV PRN (07:30)
[2016-09-26] MEDS ORDERED: hydrALAzine 20 MG/ML, 1ML IV PRN (07:30)
[2016-09-26] MEDS ORDERED: PIPERACILLIN/TAZO/PMX 3.375GM 50 ML ONE (07:33)
[2016-09-26] MEDS ORDERED: LACTATED RINGERS 1,000 ML IV SCH (07:33)
[2016-09-26] MEDS ORDERED: ROCURONIUM 10 MG/ML ONE (07:34)
[2016-09-26] MEDS ORDERED: PROPOFOL 10 MG/ML, 20ML ONE (07:34)
[2016-09-26] MEDS ORDERED: SUCCINYLCHOLINE 20 MG/ML, 10ML ONE (07:34)
[2016-09-26] MEDS ORDERED: PLEASE ENTER HEIGHT AND WEIGHT MC SCH ×2 (08:00→09:00)
[2016-09-26] MEDS ORDERED: FENTANYL PF 100 MCG/2ML ONE (08:29)
[2016-09-26] MEDS ORDERED: OXYcodone 5 MG/5 ML ORAL.SOL UDC ONE (08:30)
[2016-09-26] MEDS ORDERED: OXYcodone 5 MG/5 ML ORAL.SOL UDC PO PRN (08:30)
[2016-09-26] MEDS: FENTANYL PF 100 MCG/2ML IV PRN ×2 (08:33→08:44)
== END 2016-09-26 11:45 ==
LOC: OUT 06:48
PROVIDERS: ATTEND Internal Medicine Gastroenterology
DX: K21.0 Gastro-esophageal reflux disease with esophagitis (principal); K44.9 Diaphragmatic hernia without obstruction or gangrene; I25.10 Atherosclerotic heart disease of native coronary artery without angina pectoris; Z95.1 Presence of aortocoronary bypass graft; J44.9 Chronic obstructive pulmonary disease, unspecified; Z90.49 Acquired absence of other specified parts of digestive tract; Z98.890 Other specified postprocedural states; Z82.49 Family history of ischemic heart disease and other diseases of the circulatory system
CPT/HCPCS: 48999; J0330; J2543; J2704; J3010; J7120

== ENCOUNTER 2016-10-05 17:56 | Emergency (ER) | payer MEDICAID ==
[~2016-10-05] VITALS: Ht 180.3 cm; Wt 76.1 kg
[2016-10-05] MEDS ORDERED: SODIUM CHLORIDE FLUSH 10ML SYR IVF ONE (18:30)
[2016-10-05] MEDS ORDERED: ONDANSETRON 2MG/ML, 2ML IVPush ONE (18:30)
[2016-10-05] MEDS ORDERED: SODIUM CHLORIDE 0.9% 1,000ML IVBOLUS ONE (18:30)
[2016-10-05] MEDS ORDERED: ASPIRIN 81 MG TABLET CHEW PO ONE (18:30)
[2016-10-05 18:39] LABS: ASPARTATE AMINO TRANSFERASE 19 U/L (15-37); BLOOD UREA NITROGEN 9 mg/dL (7-18)
[2016-10-05 18:45] LABS: IS PT STATUS REG ER OR PRE ER? YES
[2016-10-05] MEDS ORDERED: ONDANSETRON 2MG/ML, 2ML ONE (18:48)
[2016-10-05] MEDS ORDERED: ASPIRIN 81 MG TABLET CHEW ONE ×2 (18:48→18:58)
[2016-10-05] MEDS ORDERED: MORPHINE SULFATE 4 MG/ML, 1ML ONE (18:48)
[2016-10-05] MEDS: MORPHINE SULFATE 4 MG/ML, 1ML IVPush PRN ×2 (18:53→19:06)
[2016-10-05] MEDS ORDERED: FAMOTIDINE 20 MG/2 ML IVPush ONE (20:00)
[2016-10-05] MEDS ORDERED: FAMOTIDINE 20 MG TABLET ONE (20:35)
[2016-10-05 21:00] VITALS: BP 102/58
[2016-10-05] MEDS ORDERED: FAMOTIDINE 20 MG TABLET PO ONE (21:00)
[2016-10-06] MEDS ORDERED: METO25TA35 PO (13:20)
[2016-10-06] MEDS ORDERED: LISI2.5T PO (13:20)
[2016-10-06] MEDS ORDERED: ISOS60TA36 PO (13:20)
[2016-10-06] MEDS ORDERED: RANI75TA12 PO (13:20)
== END 2016-10-05 21:33 | disposition home or self-care (01) ==
LOC: ED 21:00
DX: K21.9 Gastro-esophageal reflux disease without esophagitis (principal); I10 Essential (primary) hypertension; J44.9 Chronic obstructive pulmonary disease, unspecified; I25.10 Atherosclerotic heart disease of native coronary artery without angina pectoris; I25.2 Old myocardial infarction; Z87.891 Personal history of nicotine dependence
CPT/HCPCS: 36415; 71020; 80053; 83605; 83690; 84145; 84484; 85025; 87040; 93005; 96374; 96375; 99285; J2405; J7030

== ENCOUNTER 2016-10-06 12:34 | Day surgery (SDC) | payer MEDICAID ==
[~2016-10-06] VITALS: Ht 180.3 cm; Wt 76.5 kg
[2016-10-06] MEDS ORDERED: LISI2.5T PO (13:20)
[2016-10-06] MEDS ORDERED: RANI75TA12 PO (13:20)
[2016-10-06] MEDS ORDERED: METO25TA35 PO (13:20)
[2016-10-06] MEDS ORDERED: ISOS60TA36 PO (13:20)
[2016-10-06 13:27] VITALS: BP 129/84
[2016-10-06] MEDS ORDERED: LACTATED RINGERS 1,000 ML IV SCH (13:32)
[2016-10-06] MEDS ORDERED: LIDOCAINE 1%, 2ML SQ PRN (14:00)
[2016-10-06] MEDS ORDERED: FENTANYL PF 100 MCG/2ML ONE (14:04)
[2016-10-06] MEDS ORDERED: CIPROFLOXACIN/PMX 400MG/200ML 200 ML ONE (14:17)
[2016-10-06] MEDS ORDERED: LABETALOL 5MG/ML, 20ML IV PRN (14:30)
[2016-10-06] MEDS ORDERED: ONDANSETRON 2MG/ML, 2ML IVPush PRN (14:30)
[2016-10-06] MEDS ORDERED: HYDROmorphone 1 MG/ML, 1ML IV PRN (14:30)
[2016-10-06] MEDS ORDERED: MIDAZOLAM 1 MG/ML, 2ML IV PRN (14:30)
[2016-10-06] MEDS ORDERED: OXYcodone 5 MG/5 ML ORAL.SOL UDC PO PRN (14:30)
[2016-10-06] MEDS ORDERED: FENTANYL PF 100 MCG/2ML IV PRN (14:30)
[2016-10-06] MEDS ORDERED: hydrALAzine 20 MG/ML, 1ML IV PRN (14:30)
[2016-10-06] MEDS ORDERED: PHENYLEPHRINE 10 MG/ML ONE (16:40)
[2016-10-06] MEDS ORDERED: PROPOFOL 10 MG/ML, 20ML ONE (16:40)
[2016-10-06] MEDS ORDERED: SUCCINYLCHOLINE 20 MG/ML, 10ML ONE (16:40)
== END 2016-10-06 17:05 | disposition home or self-care (01) ==
LOC: OUT 12:34
PROVIDERS: ATTEND Internal Medicine Gastroenterology
DX: K86.89 Other specified diseases of pancreas (principal); I25.10 Atherosclerotic heart disease of native coronary artery without angina pectoris; Z91.040 Latex allergy status; J44.9 Chronic obstructive pulmonary disease, unspecified; Z87.891 Personal history of nicotine dependence; Z90.49 Acquired absence of other specified parts of digestive tract; K21.9 Gastro-esophageal reflux disease without esophagitis; Z98.890 Other specified postprocedural states
CPT/HCPCS: 48999; J0330; J0744; J2370; J2704; J3010; J7120

== ENCOUNTER 2016-10-24 18:07 | Emergency (ER) | payer MEDICAID ==
[~2016-10-24] VITALS: Ht 180.3 cm; Wt 68.5 kg
[~2016-10-24 18:07] MED LIST changes: +RANI75TA12 PO
[2016-10-24] MEDS ORDERED: SODIUM CHLORIDE FLUSH 10ML SYR IVF ONE (19:00)
[2016-10-24] MEDS ORDERED: MORPHINE SULFATE 4 MG/ML, 1ML IVPush PRN (19:00)
[2016-10-24] MEDS ORDERED: ONDANSETRON 2MG/ML, 2ML IVPush ONE (19:00)
[2016-10-24] MEDS ORDERED: MAALOX/HYOSCYAMINE/LIDOCAINE 45 ML BOTTLE PO ONE (19:00)
[2016-10-24] MEDS ORDERED: SODIUM CHLORIDE 0.9% 1,000ML IVBOLUS ONE (19:00)
[2016-10-24 19:33] LABS: ASPARTATE AMINO TRANSFERASE 22 U/L (15-37); BLOOD UREA NITROGEN 11 mg/dL (7-18)
[2016-10-24 19:40] LABS: IS PT STATUS REG ER OR PRE ER? YES
[2016-10-24] MEDS ORDERED: MAALOX/HYOSCYAMINE/LIDOCAINE 45 ML BOTTLE ONE (20:29)
[2016-10-24] MEDS ORDERED: ONDANSETRON 2MG/ML, 2ML ONE (20:29)
[2016-10-24] MEDS ORDERED: MORPHINE SULFATE 4 MG/ML, 1ML ONE (20:29)
[2016-10-24 21:58] VITALS: BP 100/62
== END 2016-10-24 21:59 | disposition home or self-care (01) ==
LOC: ED 21:57
DX: K86.3 Pseudocyst of pancreas (principal); R07.89 Other chest pain; Z87.891 Personal history of nicotine dependence
CPT/HCPCS: 36415; 71010; 80053; 83690; 84484; 85025; 87040; 93005; 96374; 96375; 99285; J2405; J7030

== ENCOUNTER 2016-10-27 12:28 | Day surgery (SDC) | payer MEDICAID ==
[~2016-10-27] VITALS: Ht 180.3 cm; Wt 75.0 kg
[2016-10-27] MEDS ORDERED: SODIUM CHLORIDE 0.9% 1,000 ML IV SCH (13:23)
[2016-10-27] MEDS ORDERED: ACETAMINOPHEN 325 MG TABLET PO STA (13:27)
[2016-10-27] MEDS ORDERED: SODIUM CHLORIDE 0.9% 1,000ML IVBOLUS ONE (13:30)
[2016-10-27] MEDS ORDERED: ACETAMINOPHEN 325 MG TABLET ONE (13:34)
[2016-10-27] MEDS ORDERED: PIPERACILLIN/TAZO/PMX 3.375GM 50 ML ONE (13:38)
[2016-10-27] MEDS ORDERED: ACETAMINOPHEN 325 MG SUPP ONE (13:38)
[2016-10-27] MEDS ORDERED: FENTANYL PF 250 MCG/5ML ONE (13:47)
[2016-10-27] MEDS ORDERED: ACETAMINOPHEN 325 MG SUPP PR PRN (14:00)
[2016-10-27] MEDS ORDERED: PIPERACILLIN/TAZO/PMX 3.375GM 50 ML IV ONE (14:00)
[2016-10-27 14:01] VITALS: BP 113/76
[2016-10-27] MEDS ORDERED: PROPOFOL 10 MG/ML, 20ML ONE (14:01)
[2016-10-27] MEDS ORDERED: SUCCINYLCHOLINE 20 MG/ML, 10ML ONE (14:01)
[2016-10-27] MEDS ORDERED: ROCURONIUM 10 MG/ML ONE (14:01)
[2016-10-27] MEDS ORDERED: ONDANSETRON 2MG/ML, 2ML ONE (14:01)
[2016-10-27 14:24] LABS: BLOOD UREA NITROGEN 8 mg/dL (7-18)
[2016-10-27 14:28] LABS: ASPARTATE AMINO TRANSFERASE 20 U/L (15-37)
[2016-10-27] MEDS ORDERED: HYDROmorphone 1 MG/ML, 1ML IV PRN (14:30)
[2016-10-27] MEDS ORDERED: LABETALOL 5MG/ML, 20ML IV PRN (14:30)
[2016-10-27] MEDS ORDERED: OXYcodone 5 MG/5 ML ORAL.SOL UDC PO PRN (14:30)
[2016-10-27] MEDS ORDERED: FENTANYL PF 100 MCG/2ML IV PRN (14:30)
[2016-10-27] MEDS ORDERED: hydrALAzine 20 MG/ML, 1ML IV PRN (14:30)
[2016-10-27] MEDS ORDERED: ONDANSETRON 2MG/ML, 2ML IVPush PRN (14:30)
== END 2016-10-27 16:35 ==
LOC: OUT 12:28
PROVIDERS: ATTEND Internal Medicine Gastroenterology
DX: Z45.89 Encounter for adjustment and management of other implanted devices (principal); J44.9 Chronic obstructive pulmonary disease, unspecified; I25.10 Atherosclerotic heart disease of native coronary artery without angina pectoris; Z79.82 Long term (current) use of aspirin; Z91.040 Latex allergy status; Z87.891 Personal history of nicotine dependence; Z90.49 Acquired absence of other specified parts of digestive tract; Z98.890 Other specified postprocedural states
CPT/HCPCS: 36415; 43247; 80053; 83690; 85025; 87040; J0330; J2405; J2543; J2704; J3010; J7030

== ENCOUNTER 2016-10-28 21:25 | Inpatient (IN) | payer MEDICAID ==
[~2016-10-28] VITALS: Ht 180.3 cm; Wt 89.2 kg
[2016-10-28] MEDS ORDERED: SODIUM CHLORIDE 0.9% 1,000ML IVBOLUS ONE (22:30)
[2016-10-28] MEDS ORDERED: ACETAMINOPHEN 500 MG TABLET PO ONE (22:30)
[2016-10-28] MEDS ORDERED: ONDANSETRON 2MG/ML, 2ML IVPush ONE (22:30)
[2016-10-28] MEDS ORDERED: HYDROmorphone 1 MG/ML, 1ML ONE (22:33)
[2016-10-28] MEDS ORDERED: ACETAMINOPHEN 500 MG TABLET ONE (22:33)
[2016-10-28] MEDS ORDERED: ONDANSETRON 2MG/ML, 2ML ONE (22:34)
[2016-10-28] MEDS: HYDROmorphone 1 MG/ML, 1ML IVPush PRN (22:39)
[2016-10-28 23:45] LABS: ASPARTATE AMINO TRANSFERASE 30 U/L (15-37); BLOOD UREA NITROGEN 6 mg/dL (7-18)
[2016-10-29] MEDS ORDERED: PIPERACILLIN/TAZO/PMX 3.375GM 50 ML ONE (00:25)
[2016-10-29] MEDS ORDERED: PIPERACILLIN/TAZO/PMX 3.375GM 50 ML IVPB ONE (00:30)
[2016-10-29] MEDS ORDERED: RANI150T8 PO (00:37)
[2016-10-29] MEDS ORDERED: ATOR40TA78 PO (00:37)
[2016-10-29] MEDS ORDERED: SPIR25TA3 PO (00:37)
[2016-10-29] MEDS ORDERED: CIPR500T87 PO (00:37)
[2016-10-29] MEDS ORDERED: PANT40TA5 PO (00:37)
[2016-10-29] MEDS ORDERED: HYDROmorphone 1 MG/ML, 1ML ONE (00:51)
[2016-10-29] MEDS: HYDROmorphone 1 MG/ML, 1ML IVPush PRN (00:55)
[2016-10-29] MEDS ORDERED: VANCOMYCIN PER PHARMACY MC PRN ×2 (01:30→03:00)
[2016-10-29] MEDS ORDERED: VANCOMYCIN 1,500 MG in SODIUM CHLORIDE 0.9% 250 ML IV ONE (02:00)
[2016-10-29] MEDS ORDERED: D5%-0.45NACL+KCL 20MEQ 1,000 ML IV SCH (02:37)
[2016-10-29] MEDS ORDERED: PIPERACILLIN/TAZO/PMX 4.5GM 100 ML IV SCH (03:00)
[2016-10-29] MEDS ORDERED: LORazepam 1MG TABLET PO PRN (03:00)
[2016-10-29] MEDS ORDERED: TEMAZEPAM 15 MG CAPSULE PO PRN (03:00)
[2016-10-29] MEDS ORDERED: LABETALOL 5MG/ML, 20ML IVPush PRN (03:00)
[2016-10-29] MEDS ORDERED: ONDANSETRON 2MG/ML, 2ML IVPush PRN (03:00)
[2016-10-29] MEDS ORDERED: ACETAMINOPHEN 325 MG TABLET PO PRN (03:00)
[2016-10-29] MEDS ORDERED: DOCUSATE 100 MG CAPSULE PO PRN (03:00)
[2016-10-29] MEDS ORDERED: SODIUM CHLORIDE 0.9%, 500ML IVBOLUS ONE ×3 (04:30→13:30)
[2016-10-29] MEDS: SPIRONOLACTONE 25 MG TABLET PO SCH (08:46)
[2016-10-29] MEDS: LISINOPRIL 5 MG TABLET PO SCH (08:46)
[2016-10-29] MEDS ORDERED: PANTOPRAZOLE 20MG TABLET ONE (08:52)
[2016-10-29] MEDS: PIPERACILLIN/TAZO/PMX 4.5GM 100 ML IV SCH ×3 (08:57→22:06)
[2016-10-29] MEDS: SENNA/DOCUSATE TABLET PO SCH (08:58)
[2016-10-29] MEDS: PANTOPROZOLE 40MG TABLET PO SCH ×2 (08:58→22:06)
[2016-10-29] MEDS: ISOSORBIDE MONONITRATE ER 60 MG TABLET PO SCH (08:59)
[2016-10-29] MEDS ORDERED: OXYcodone/APAP 5/325MG TABLET ONE (09:07)
[2016-10-29] MEDS: OXYcodone/APAP 5/325MG TABLET PO PRN ×4 (09:10→22:10)
[2016-10-29] MEDS ORDERED: PHARMACOKINETIC MONITORING MC PRN (12:00)
[2016-10-29] MEDS ORDERED: PHARMACOKINETIC CONSULTATION MC ONE (12:00)
[2016-10-29] MEDS: FLUCONAZOLE 400 MG/200 ML 200 ML IV SCH ×2 (13:11→13:18)
[2016-10-29 13:43] VITALS: BP 90/59
[2016-10-29] MEDS: D5%-0.45NACL+KCL 20MEQ 1,000 ML IV SCH (15:26)
[2016-10-29] MEDS: VANCOMYCIN 1,500 MG in SODIUM CHLORIDE 0.9% 250 ML IV SCH (15:26)
[2016-10-29 19:29] VITALS: BP 96/65
[2016-10-29] MEDS: ATORVASTATIN 40 MG TABLET PO SCH (22:06)
[2016-10-30] MEDS: D5%-0.45NACL+KCL 20MEQ 1,000 ML IV SCH ×2 (01:15→08:56)
[2016-10-30 01:22] VITALS: BP 98/66
[2016-10-30] MEDS: VANCOMYCIN 1,500 MG in SODIUM CHLORIDE 0.9% 250 ML IV SCH ×2 (02:57→16:07)
[2016-10-30] MEDS: OXYcodone/APAP 5/325MG TABLET PO PRN ×3 (05:21→20:27)
[2016-10-30] MEDS: PIPERACILLIN/TAZO/PMX 4.5GM 100 ML IV SCH ×3 (05:21→18:39)
[2016-10-30 06:27] LABS: ASPARTATE AMINO TRANSFERASE 18 U/L (15-37); BLOOD UREA NITROGEN 6 mg/dL (7-18)
[2016-10-30 07:12] VITALS: BP 117/77
[2016-10-30] MEDS: ISOSORBIDE MONONITRATE ER 60 MG TABLET PO SCH (08:19)
[2016-10-30] MEDS: PANTOPROZOLE 40MG TABLET PO SCH ×3 (08:19→20:27)
[2016-10-30] MEDS: LISINOPRIL 5 MG TABLET PO SCH (08:19)
[2016-10-30] MEDS: SPIRONOLACTONE 25 MG TABLET PO SCH (08:19)
[2016-10-30] MEDS: SENNA/DOCUSATE TABLET PO SCH (08:20)
[2016-10-30] MEDS ORDERED: MAALOX/HYOSCYAMINE/LIDOCAINE 45 ML BTL PO ONE (08:30)
[2016-10-30] MEDS: PROMETHAZINE 25 MG/ML, 1ML IM PRN (08:56)
[2016-10-30] MEDS: FLUCONAZOLE 400 MG/200 ML 200 ML IV SCH (14:16)
[2016-10-30 14:18] VITALS: BP 111/79
[2016-10-30 15:39] VITALS: BP 105/74
[2016-10-30] MEDS ORDERED: OMNIPAQUE 350 MG/ML, 100ML BOTTLE ONE (17:49)
[2016-10-30 18:35] VITALS: BP 104/69
[2016-10-30] MEDS: ATORVASTATIN 40 MG TABLET PO SCH (20:27)
[2016-10-31] MEDS: D5%-0.45NACL+KCL 20MEQ 1,000 ML IV SCH ×3 (00:18→18:04)
[2016-10-31] MEDS: PIPERACILLIN/TAZO/PMX 4.5GM 100 ML IV SCH ×5 (00:18→22:14)
[2016-10-31] MEDS: VANCOMYCIN 1,500 MG in SODIUM CHLORIDE 0.9% 250 ML IV SCH ×2 (02:00→15:41)
[2016-10-31] MEDS: OXYcodone/APAP 5/325MG TABLET PO PRN ×4 (04:39→22:14)
[2016-10-31 04:41] VITALS: BP 120/86
[2016-10-31 06:08] LABS: BLOOD UREA NITROGEN 3 mg/dL (7-18)
[2016-10-31 06:49] VITALS: BP 101/66
[2016-10-31] MEDS: ISOSORBIDE MONONITRATE ER 60 MG TABLET PO SCH (07:28)
[2016-10-31] MEDS: LISINOPRIL 5 MG TABLET PO SCH (07:28)
[2016-10-31] MEDS: SPIRONOLACTONE 25 MG TABLET PO SCH (07:29)
[2016-10-31] MEDS: SENNA/DOCUSATE TABLET PO SCH (09:12)
[2016-10-31] MEDS: PANTOPROZOLE 40MG TABLET PO SCH ×2 (09:14→22:13)
[2016-10-31] MEDS: METOPROLOL TARTRATE 25 MG TABLET PO SCH ×2 (10:44→18:04)
[2016-10-31 13:09] VITALS: BP 103/79
[2016-10-31] MEDS ORDERED: LIDOCAINE 1%, 20ML ONE (13:15)
[2016-10-31] MEDS: FLUCONAZOLE 400 MG/200 ML 200 ML IV SCH (13:16)
[2016-10-31] MEDS ORDERED: MIDAZOLAM 1 MG/ML, 5ML ONE ×2 (13:57→13:58)
[2016-10-31] MEDS ORDERED: FENTANYL PF 100 MCG/2ML ONE (13:58)
[2016-10-31] MEDS: morphine SULFATE 10 MG/ML, 1ML IVPush PRN (18:10)
[2016-10-31 20:06] VITALS: BP 108/84
[2016-10-31] MEDS: ATORVASTATIN 40 MG TABLET PO SCH (22:13)
[2016-11-01] VITALS (10 sets, daily range): BP systolic 101–128; BP diastolic 72–95
[2016-11-01] MEDS: D5%-0.45NACL+KCL 20MEQ 1,000 ML IV SCH (02:53)
[2016-11-01] MEDS: VANCOMYCIN 1,500 MG in SODIUM CHLORIDE 0.9% 250 ML IV SCH ×2 (02:53→15:18)
[2016-11-01] MEDS: OXYcodone/APAP 5/325MG TABLET PO PRN ×2 (03:00→11:38)
[2016-11-01] MEDS: METOPROLOL TARTRATE 25 MG TABLET PO SCH ×2 (05:39→17:15)
[2016-11-01] MEDS: PIPERACILLIN/TAZO/PMX 4.5GM 100 ML IV SCH ×4 (05:39→23:35)
[2016-11-01 06:27] LABS: BLOOD UREA NITROGEN 3 mg/dL (7-18)
[2016-11-01] MEDS: SENNA/DOCUSATE TABLET PO SCH (09:00)
[2016-11-01] MEDS: ISOSORBIDE MONONITRATE ER 60 MG TABLET PO SCH ×2 (09:43→09:54)
[2016-11-01] MEDS: SPIRONOLACTONE 25 MG TABLET PO SCH ×2 (09:43→09:54)
[2016-11-01] MEDS: morphine SULFATE 10 MG/ML, 1ML IVPush PRN ×2 (09:43→13:19)
[2016-11-01] MEDS: PANTOPROZOLE 40MG TABLET PO SCH ×2 (09:44→20:15)
[2016-11-01] MEDS: LISINOPRIL 5 MG TABLET PO SCH ×2 (09:44→09:54)
[2016-11-01] MEDS: POTASSIUM CHLORIDE 20 MEQ TAB.ER.PRT PO SCH ×3 (09:49→23:34)
[2016-11-01] MEDS: FLUCONAZOLE 400 MG/200 ML 200 ML IV SCH (13:12)
[2016-11-01] MEDS ORDERED: ENOXAPARIN 40 MG/0.4 ML SQ SCH (16:30)
[2016-11-01] MEDS ORDERED: MAALOX/HYOSCYAMINE/LIDOCAINE 45 ML BTL PO ONE (18:00)
[2016-11-01] MEDS: NITROGLYCERIN 0.4 MG BOTTLE (25 TABS) SL PRN ×2 (18:21→20:26)
[2016-11-01 18:48] LABS: IS PT STATUS REG ER OR PRE ER? NO
[2016-11-01] MEDS ORDERED: HEPARIN 25,000 UNITS/500ML PMX 500 ML ONE (19:56)
[2016-11-01] MEDS: ATORVASTATIN 40 MG TABLET PO SCH (20:15)
[2016-11-01] MEDS: PROMETHAZINE 25 MG/ML, 1ML IM PRN (20:18)
[2016-11-01] MEDS ORDERED: HEPARIN 5,000 UNITS/ML, 1ML IV ONE (20:30)
[2016-11-01] MEDS: MORPHINE SULFATE 4 MG/ML, 1ML IVPush PRN (20:38)
[2016-11-01] MEDS: HEPARIN 25,000 UNITS/500ML PMX 500 ML IV PRN (20:47)
[2016-11-01] MEDS ORDERED: LORazepam 1MG TABLET PO PRN (23:00)
[2016-11-02 01:42] LABS: IS PT STATUS REG ER OR PRE ER? NO
[2016-11-02] MEDS: VANCOMYCIN 1,500 MG in SODIUM CHLORIDE 0.9% 250 ML IV SCH ×2 (01:56→16:04)
[2016-11-02 02:19] VITALS: BP 108/78
[2016-11-02] MEDS: HEPARIN 5,000 UNITS/ML, 1ML IV PRN ×3 (05:04→20:26)
[2016-11-02] MEDS: PIPERACILLIN/TAZO/PMX 4.5GM 100 ML IV SCH ×4 (05:06→23:39)
[2016-11-02] MEDS: MORPHINE SULFATE 4 MG/ML, 1ML IVPush PRN ×4 (05:17→20:38)
[2016-11-02 06:42] VITALS: BP 105/80
[2016-11-02 06:43] LABS: BLOOD UREA NITROGEN 4 mg/dL (7-18)
[2016-11-02 06:45] LABS: IS PT STATUS REG ER OR PRE ER? NO
[2016-11-02] MEDS: METOPROLOL TARTRATE 25 MG TABLET PO SCH ×2 (06:45→17:56)
[2016-11-02 07:57] VITALS: BP 109/76
[2016-11-02] MEDS: ASPIRIN 325 MG TABLET PO SCH (08:31)
[2016-11-02] MEDS: PANTOPROZOLE 40MG TABLET PO SCH ×2 (08:31→20:26)
[2016-11-02] MEDS: ISOSORBIDE MONONITRATE ER 60 MG TABLET PO SCH (08:31)
[2016-11-02] MEDS: LISINOPRIL 5 MG TABLET PO SCH (08:31)
[2016-11-02] MEDS: SPIRONOLACTONE 25 MG TABLET PO SCH (08:31)
[2016-11-02] MEDS: POTASSIUM CHLORIDE 20 MEQ TAB.ER.PRT PO SCH ×2 (08:31→20:26)
[2016-11-02] MEDS: FLUCONAZOLE 400 MG/200 ML 200 ML IV SCH (13:20)
[2016-11-02 13:47] VITALS: BP 99/63
[2016-11-02] MEDS: ATORVASTATIN 40 MG TABLET PO SCH (20:26)
[2016-11-02] MEDS: HEPARIN 25,000 UNITS/500ML PMX 500 ML IV PRN (20:28)
[2016-11-02 21:12] VITALS: BP 108/78
[2016-11-03] MEDS: MORPHINE SULFATE 4 MG/ML, 1ML IVPush PRN ×4 (01:18→21:00)
[2016-11-03 01:22] VITALS: BP 100/71
[2016-11-03] MEDS: VANCOMYCIN 1,500 MG in SODIUM CHLORIDE 0.9% 250 ML IV SCH (02:28)
[2016-11-03] MEDS: HEPARIN 5,000 UNITS/ML, 1ML IV PRN ×4 (02:35→23:58)
[2016-11-03 05:45] VITALS: BP 115/87
[2016-11-03] MEDS: PIPERACILLIN/TAZO/PMX 4.5GM 100 ML IV SCH ×4 (05:54→23:58)
[2016-11-03] MEDS: ASPIRIN 325 MG TABLET PO SCH (05:54)
[2016-11-03 06:02] LABS: BLOOD UREA NITROGEN 5 mg/dL (7-18)
[2016-11-03] MEDS: METOPROLOL TARTRATE 25 MG TABLET PO SCH ×2 (06:42→17:27)
[2016-11-03 07:36] VITALS: BP 115/64
[2016-11-03] MEDS: PANTOPROZOLE 40MG TABLET PO SCH ×2 (08:04→20:57)
[2016-11-03] MEDS: LISINOPRIL 5 MG TABLET PO SCH (08:04)
[2016-11-03] MEDS: ISOSORBIDE MONONITRATE ER 60 MG TABLET PO SCH (08:04)
[2016-11-03] MEDS: POTASSIUM CHLORIDE 20 MEQ TAB.ER.PRT PO SCH ×3 (08:04→21:11)
[2016-11-03] MEDS: SPIRONOLACTONE 25 MG TABLET PO SCH (08:04)
[2016-11-03] MEDS: HEPARIN 25,000 UNITS/500ML PMX 500 ML IV PRN (12:29)
[2016-11-03] MEDS: FLUCONAZOLE 400 MG/200 ML 200 ML IV SCH (12:30)
[2016-11-03 14:11] VITALS: BP 107/78
[2016-11-03 20:53] VITALS: BP 113/79
[2016-11-03] MEDS: ATORVASTATIN 40 MG TABLET PO SCH (20:57)
[2016-11-04] MEDS: MORPHINE SULFATE 4 MG/ML, 1ML IVPush PRN ×5 (01:51→23:40)
[2016-11-04] MEDS: HEPARIN 25,000 UNITS/500ML PMX 500 ML IV PRN (01:55)
[2016-11-04 02:06] VITALS: BP 104/72
[2016-11-04 05:15] VITALS: BP 119/82
[2016-11-04] MEDS: METOPROLOL TARTRATE 25 MG TABLET PO SCH ×2 (05:17→18:05)
[2016-11-04] MEDS: PIPERACILLIN/TAZO/PMX 4.5GM 100 ML IV SCH ×4 (05:17→23:38)
[2016-11-04] MEDS: ASPIRIN 325 MG TABLET PO SCH (05:17)
[2016-11-04 05:28] LABS: BLOOD UREA NITROGEN 5 mg/dL (7-18)
[2016-11-04] MEDS: HEPARIN 5,000 UNITS/ML, 1ML IV PRN (06:35)
[2016-11-04 08:59] VITALS: BP 122/87
[2016-11-04] MEDS: LISINOPRIL 5 MG TABLET PO SCH (09:09)
[2016-11-04] MEDS: ISOSORBIDE MONONITRATE ER 60 MG TABLET PO SCH (09:09)
[2016-11-04] MEDS: PANTOPROZOLE 40MG TABLET PO SCH ×2 (09:09→20:25)
[2016-11-04] MEDS: POTASSIUM CHLORIDE 20 MEQ TAB.ER.PRT PO SCH (09:10)
[2016-11-04] MEDS: SPIRONOLACTONE 25 MG TABLET PO SCH (09:10)
[2016-11-04] MEDS ORDERED: POTASSIUM CHLORIDE 20 MEQ TAB.ER.PRT PO ONE (10:00)
[2016-11-04] MEDS ORDERED: POTASSIUM CHLORIDE 40 MEQ in SODIUM CHLORIDE 0.9% 500 ML IV ONE (12:00)
[2016-11-04] MEDS: FLUCONAZOLE 400 MG/200 ML 200 ML IV SCH (12:33)
[2016-11-04 14:17] VITALS: BP 120/87
[2016-11-04 16:36] LABS: IS PT STATUS REG ER OR PRE ER? NO
[2016-11-04] MEDS: FUROSEMIDE 20 MG/2 ML IV SCH (18:04)
[2016-11-04 19:36] VITALS: BP 100/71
[2016-11-04] MEDS: ATORVASTATIN 40 MG TABLET PO SCH (20:25)
[2016-11-05 01:21] VITALS: BP 97/73
[2016-11-05] MEDS: MORPHINE SULFATE 4 MG/ML, 1ML IVPush PRN ×2 (03:43→12:18)
[2016-11-05 05:30] VITALS: BP 101/71
[2016-11-05] MEDS: PIPERACILLIN/TAZO/PMX 4.5GM 100 ML IV SCH ×4 (05:32→22:30)
[2016-11-05] MEDS: METOPROLOL TARTRATE 25 MG TABLET PO SCH ×2 (05:32→17:49)
[2016-11-05] MEDS: ASPIRIN 325 MG TABLET PO SCH (05:32)
[2016-11-05 05:45] LABS: BLOOD UREA NITROGEN 6 mg/dL (7-18)
[2016-11-05 05:49] LABS: ASPARTATE AMINO TRANSFERASE 10 U/L (15-37)
[2016-11-05] MEDS ORDERED: POLYETHYLENE GLYCOL 17 GM PACKET PO SCH (09:00)
[2016-11-05] MEDS: SPIRONOLACTONE 25 MG TABLET PO SCH (10:22)
[2016-11-05] MEDS: FUROSEMIDE 20 MG/2 ML IV SCH (10:22)
[2016-11-05] MEDS: LISINOPRIL 5 MG TABLET PO SCH (10:22)
[2016-11-05] MEDS: PANTOPROZOLE 40MG TABLET PO SCH ×2 (10:22→21:30)
[2016-11-05] MEDS: ISOSORBIDE MONONITRATE ER 60 MG TABLET PO SCH (10:23)
[2016-11-05 10:26] VITALS: BP 100/68
[2016-11-05] MEDS ORDERED: VANCOMYCIN 1,600 MG in SODIUM CHLORIDE 0.9% 250 ML IV ONE (12:00)
[2016-11-05 12:11] VITALS: BP 95/65
[2016-11-05 12:50] VITALS: BP 97/64
[2016-11-05] MEDS: FLUCONAZOLE 400 MG/200 ML 200 ML IV SCH (12:55)
[2016-11-05] MEDS: OXYcodone/APAP 5/325MG TABLET PO PRN ×3 (13:03→22:31)
[2016-11-05] MEDS: LINEZOLID 600 MG TABLET PO SCH (17:49)
[2016-11-05 19:34] VITALS: BP 88/49
[2016-11-05] MEDS: ATORVASTATIN 40 MG TABLET PO SCH (21:30)
[2016-11-05] MEDS: HEPARIN 5,000 UNITS/ML, 1ML SQ SCH (21:31)
[2016-11-06 01:05] VITALS: BP 99/62
[2016-11-06] MEDS: OXYcodone/APAP 5/325MG TABLET PO PRN ×2 (03:37→21:04)
[2016-11-06] MEDS: LINEZOLID 600 MG TABLET PO SCH ×2 (03:37→17:29)
[2016-11-06] MEDS: HEPARIN 5,000 UNITS/ML, 1ML SQ SCH ×3 (04:16→22:00)
[2016-11-06] MEDS: PIPERACILLIN/TAZO/PMX 4.5GM 100 ML IV SCH ×4 (05:28→23:28)
[2016-11-06] MEDS: ASPIRIN 325 MG TABLET PO SCH (05:28)
[2016-11-06] MEDS: METOPROLOL TARTRATE 25 MG TABLET PO SCH ×2 (05:32→17:29)
[2016-11-06] MEDS: ONDANSETRON 2MG/ML, 2ML IVPush PRN (05:49)
[2016-11-06 06:15] LABS: ASPARTATE AMINO TRANSFERASE 11 U/L (15-37); BLOOD UREA NITROGEN 8 mg/dL (7-18)
[2016-11-06 07:23] VITALS: BP 98/69
[2016-11-06] MEDS: POLYETHYLENE GLYCOL 17 GM PACKET PO SCH (09:04)
[2016-11-06] MEDS: FUROSEMIDE 20 MG/2 ML IV SCH (09:04)
[2016-11-06] MEDS: PANTOPROZOLE 40MG TABLET PO SCH ×2 (09:04→21:04)
[2016-11-06] MEDS: LISINOPRIL 5 MG TABLET PO SCH (09:04)
[2016-11-06] MEDS: SPIRONOLACTONE 25 MG TABLET PO SCH (09:04)
[2016-11-06] MEDS: ISOSORBIDE MONONITRATE ER 60 MG TABLET PO SCH (09:04)
[2016-11-06] MEDS ORDERED: MAGNESIUM SULFATE PMX 2GM/50ML 50 ML IV ONE (13:00)
[2016-11-06] MEDS ORDERED: POTASSIUM CHLORIDE 20 MEQ TAB.ER.PRT PO ONE (13:00)
[2016-11-06 14:45] VITALS: BP 95/61
[2016-11-06 19:37] VITALS: BP 92/56
[2016-11-06] MEDS: ATORVASTATIN 40 MG TABLET PO SCH (21:04)
[2016-11-07 01:55] VITALS: BP 91/55
[2016-11-07] MEDS: HEPARIN 5,000 UNITS/ML, 1ML SQ SCH ×3 (04:19→22:00)
[2016-11-07] MEDS: METOPROLOL TARTRATE 25 MG TABLET PO SCH ×2 (05:22→18:12)
[2016-11-07] MEDS: LINEZOLID 600 MG TABLET PO SCH ×2 (05:22→15:17)
[2016-11-07] MEDS: ASPIRIN 325 MG TABLET PO SCH (05:22)
[2016-11-07 05:59] LABS: ASPARTATE AMINO TRANSFERASE 9 U/L (15-37); BLOOD UREA NITROGEN 10 mg/dL (7-18)
[2016-11-07] MEDS: PIPERACILLIN/TAZO/PMX 4.5GM 100 ML IV SCH ×3 (07:38→23:35)
[2016-11-07] MEDS: FUROSEMIDE 20 MG/2 ML IV SCH (07:39)
[2016-11-07] MEDS: LISINOPRIL 5 MG TABLET PO SCH (07:40)
[2016-11-07] MEDS: ISOSORBIDE MONONITRATE ER 60 MG TABLET PO SCH (07:40)
[2016-11-07] MEDS: SPIRONOLACTONE 25 MG TABLET PO SCH (07:40)
[2016-11-07] MEDS: PANTOPROZOLE 40MG TABLET PO SCH ×2 (07:40→20:22)
[2016-11-07] MEDS: POLYETHYLENE GLYCOL 17 GM PACKET PO SCH (07:41)
[2016-11-07 07:50] VITALS: BP 99/66
[2016-11-07] MEDS: OXYcodone/APAP 5/325MG TABLET PO PRN (11:32)
[2016-11-07] MEDS ORDERED: POTASSIUM CHLORIDE 20 MEQ TAB.ER.PRT PO ONE (12:00)
[2016-11-07 12:41] VITALS: BP 99/66
[2016-11-07] MEDS: ATORVASTATIN 40 MG TABLET PO SCH (20:22)
[2016-11-07 20:43] VITALS: BP 93/59
[2016-11-08] MEDS: OXYcodone/APAP 5/325MG TABLET PO PRN ×3 (00:34→18:05)
[2016-11-08 03:52] VITALS: BP 99/72
[2016-11-08] MEDS: METOPROLOL TARTRATE 25 MG TABLET PO SCH ×2 (05:13→17:22)
[2016-11-08] MEDS: LINEZOLID 600 MG TABLET PO SCH ×2 (05:13→17:22)
[2016-11-08] MEDS: ASPIRIN 325 MG TABLET PO SCH (05:13)
[2016-11-08] MEDS: HEPARIN 5,000 UNITS/ML, 1ML SQ SCH ×3 (06:00→20:30)
[2016-11-08 06:07] LABS: BLOOD UREA NITROGEN 12 mg/dL (7-18)
[2016-11-08] MEDS: PANTOPROZOLE 40MG TABLET PO SCH ×2 (08:07→20:30)
[2016-11-08] MEDS: LISINOPRIL 5 MG TABLET PO SCH (08:07)
[2016-11-08] MEDS: FUROSEMIDE 20 MG/2 ML IV SCH (08:07)
[2016-11-08] MEDS: SPIRONOLACTONE 25 MG TABLET PO SCH (08:07)
[2016-11-08] MEDS: ISOSORBIDE MONONITRATE ER 60 MG TABLET PO SCH (08:07)
[2016-11-08] MEDS: POLYETHYLENE GLYCOL 17 GM PACKET PO SCH (08:08)
[2016-11-08] MEDS: PIPERACILLIN/TAZO/PMX 4.5GM 100 ML IV SCH ×3 (08:11→23:59)
[2016-11-08 08:27] VITALS: BP 94/60
[2016-11-08 15:18] VITALS: BP 94/62
[2016-11-08 19:45] VITALS: BP_SYST 88; BP_SYST 89; BP_DIAS 58; BP_DIAS 59
[2016-11-08] MEDS: ATORVASTATIN 40 MG TABLET PO SCH (20:30)
[2016-11-08 20:40] VITALS: BP 92/57
[2016-11-09] MEDS: OXYcodone/APAP 5/325MG TABLET PO PRN ×4 (00:03→21:44)
[2016-11-09 03:00] VITALS: BP 95/60
[2016-11-09] MEDS: ASPIRIN 325 MG TABLET PO SCH (04:04)
[2016-11-09] MEDS: METOPROLOL TARTRATE 25 MG TABLET PO SCH ×2 (04:04→17:13)
[2016-11-09] MEDS: HEPARIN 5,000 UNITS/ML, 1ML SQ SCH ×3 (04:05→21:47)
[2016-11-09] MEDS: LINEZOLID 600 MG TABLET PO SCH ×2 (04:05→17:13)
[2016-11-09 05:49] LABS: BLOOD UREA NITROGEN 14 mg/dL (7-18)
[2016-11-09 07:50] VITALS: BP 99/67
[2016-11-09] MEDS: FUROSEMIDE 20 MG/2 ML IV SCH (08:00)
[2016-11-09] MEDS: SPIRONOLACTONE 25 MG TABLET PO SCH (08:01)
[2016-11-09] MEDS: PIPERACILLIN/TAZO/PMX 4.5GM 100 ML IV SCH ×3 (08:01→23:56)
[2016-11-09] MEDS: ISOSORBIDE MONONITRATE ER 60 MG TABLET PO SCH (08:01)
[2016-11-09] MEDS: POLYETHYLENE GLYCOL 17 GM PACKET PO SCH (08:01)
[2016-11-09] MEDS: LISINOPRIL 5 MG TABLET PO SCH (08:01)
[2016-11-09] MEDS: PANTOPROZOLE 40MG TABLET PO SCH ×2 (08:01→21:44)
[2016-11-09] MEDS ORDERED: POTASSIUM CHLORIDE 20 MEQ TAB.ER.PRT PO ONE (08:30)
[2016-11-09 10:43] VITALS: BP 93/60
[2016-11-09 13:44] VITALS: BP 92/60
[2016-11-09 17:13] VITALS: BP 97/66
[2016-11-09] MEDS: ONDANSETRON 2MG/ML, 2ML IVPush PRN (20:32)
[2016-11-09] MEDS: MORPHINE SULFATE 4 MG/ML, 1ML IVPush PRN (20:32)
[2016-11-09 21:11] VITALS: BP 94/62
[2016-11-09] MEDS: ATORVASTATIN 40 MG TABLET PO SCH (21:44)
[2016-11-10 02:45] VITALS: BP 95/63
[2016-11-10] MEDS: ASPIRIN 325 MG TABLET PO SCH (04:57)
[2016-11-10] MEDS: METOPROLOL TARTRATE 25 MG TABLET PO SCH ×2 (04:57→18:15)
[2016-11-10] MEDS: OXYcodone/APAP 5/325MG TABLET PO PRN ×4 (04:57→23:11)
[2016-11-10] MEDS: LINEZOLID 600 MG TABLET PO SCH ×2 (05:00→18:15)
[2016-11-10] MEDS: HEPARIN 5,000 UNITS/ML, 1ML SQ SCH ×3 (05:00→20:13)
[2016-11-10 06:23] LABS: BLOOD UREA NITROGEN 15 mg/dL (7-18)
[2016-11-10] MEDS: PIPERACILLIN/TAZO/PMX 4.5GM 100 ML IV SCH ×3 (07:41→23:11)
[2016-11-10 07:52] VITALS: BP 97/66
[2016-11-10] MEDS: POLYETHYLENE GLYCOL 17 GM PACKET PO SCH (09:00)
[2016-11-10] MEDS: PANTOPROZOLE 40MG TABLET PO SCH (09:16)
[2016-11-10] MEDS: ISOSORBIDE MONONITRATE ER 60 MG TABLET PO SCH (09:16)
[2016-11-10] MEDS: SPIRONOLACTONE 25 MG TABLET PO SCH (09:16)
[2016-11-10] MEDS: FUROSEMIDE 20 MG/2 ML IV SCH (09:16)
[2016-11-10] MEDS: LISINOPRIL 5 MG TABLET PO SCH (09:17)
[2016-11-10 14:18] VITALS: BP 102/69
[2016-11-10] MEDS: LACTOBACILLUS 1GM/ PACKET PO SCH ×2 (18:15→20:13)
[2016-11-10 19:45] VITALS: BP 91/55
[2016-11-10] MEDS: ATORVASTATIN 40 MG TABLET PO SCH (20:13)
[2016-11-11 02:35] VITALS: BP 90/61
[2016-11-11 05:35] LABS: BLOOD UREA NITROGEN 16 mg/dL (7-18)
[2016-11-11] MEDS: HEPARIN 5,000 UNITS/ML, 1ML SQ SCH ×3 (06:00→21:33)
[2016-11-11] MEDS: ASPIRIN 325 MG TABLET PO SCH (06:21)
[2016-11-11] MEDS: METOPROLOL TARTRATE 25 MG TABLET PO SCH ×2 (06:21→17:36)
[2016-11-11] MEDS: LINEZOLID 600 MG TABLET PO SCH ×2 (06:21→17:36)
[2016-11-11 07:02] VITALS: BP 101/70
[2016-11-11] MEDS: PIPERACILLIN/TAZO/PMX 4.5GM 100 ML IV SCH ×3 (07:32→22:57)
[2016-11-11] MEDS: OXYcodone/APAP 5/325MG TABLET PO PRN ×2 (07:37→23:10)
[2016-11-11] MEDS: POLYETHYLENE GLYCOL 17 GM PACKET PO SCH (09:00)
[2016-11-11] MEDS: ISOSORBIDE MONONITRATE ER 60 MG TABLET PO SCH (09:09)
[2016-11-11] MEDS: LISINOPRIL 5 MG TABLET PO SCH (09:09)
[2016-11-11] MEDS: SPIRONOLACTONE 25 MG TABLET PO SCH (09:09)
[2016-11-11] MEDS: PANTOPROZOLE 40MG TABLET PO SCH (09:10)
[2016-11-11] MEDS: FUROSEMIDE 20 MG/2 ML IV SCH (09:10)
[2016-11-11] MEDS: LACTOBACILLUS 1GM/ PACKET PO SCH ×3 (09:10→21:33)
[2016-11-11 14:39] VITALS: BP 95/61
[2016-11-11 17:36] VITALS: BP 95/60
[2016-11-11 20:29] VITALS: BP 102/71
[2016-11-11] MEDS: ATORVASTATIN 40 MG TABLET PO SCH (21:33)
[2016-11-12 01:39] VITALS: BP 102/67
[2016-11-12 05:36] LABS: BLOOD UREA NITROGEN 16 mg/dL (7-18)
[2016-11-12] MEDS: HEPARIN 5,000 UNITS/ML, 1ML SQ SCH ×3 (06:00→21:49)
[2016-11-12] MEDS: LINEZOLID 600 MG TABLET PO SCH ×2 (06:44→17:35)
[2016-11-12] MEDS: OXYcodone/APAP 5/325MG TABLET PO PRN ×3 (06:44→21:49)
[2016-11-12] MEDS: ASPIRIN 325 MG TABLET PO SCH (06:44)
[2016-11-12] MEDS: METOPROLOL TARTRATE 25 MG TABLET PO SCH ×2 (06:44→17:36)
[2016-11-12] MEDS: PIPERACILLIN/TAZO/PMX 4.5GM 100 ML IV SCH ×3 (07:57→22:46)
[2016-11-12 08:01] VITALS: BP 98/62
[2016-11-12] MEDS: PANTOPROZOLE 40MG TABLET PO SCH (08:12)
[2016-11-12] MEDS ORDERED: ALUMINUM/MAG/SIMETHICONE 30 ML UDC PO PRN (09:00)
[2016-11-12] MEDS: POLYETHYLENE GLYCOL 17 GM PACKET PO SCH (09:00)
[2016-11-12] MEDS: SPIRONOLACTONE 25 MG TABLET PO SCH (09:34)
[2016-11-12] MEDS: ISOSORBIDE MONONITRATE ER 60 MG TABLET PO SCH (09:35)
[2016-11-12] MEDS: FUROSEMIDE 20 MG/2 ML IV SCH (09:35)
[2016-11-12] MEDS: LISINOPRIL 5 MG TABLET PO SCH (09:35)
[2016-11-12] MEDS: LACTOBACILLUS 1GM/ PACKET PO SCH ×3 (09:35→21:49)
[2016-11-12 13:22] VITALS: BP 88/52
[2016-11-12 13:25] VITALS: BP 96/63
[2016-11-12 17:34] VITALS: BP 97/63
[2016-11-12 18:00] VITALS: BP 101/67
[2016-11-12] MEDS: ATORVASTATIN 40 MG TABLET PO SCH (21:49)
[2016-11-13 02:31] VITALS: BP 99/64
[2016-11-13] MEDS: OXYcodone/APAP 5/325MG TABLET PO PRN ×2 (04:14→08:08)
[2016-11-13] MEDS: HEPARIN 5,000 UNITS/ML, 1ML SQ SCH ×3 (06:00→21:22)
[2016-11-13] MEDS: ASPIRIN 325 MG TABLET PO SCH (06:30)
[2016-11-13] MEDS: METOPROLOL TARTRATE 25 MG TABLET PO SCH ×2 (06:30→18:13)
[2016-11-13] MEDS: LINEZOLID 600 MG TABLET PO SCH ×2 (06:30→18:12)
[2016-11-13 07:48] VITALS: BP 101/64
[2016-11-13] MEDS: PIPERACILLIN/TAZO/PMX 4.5GM 100 ML IV SCH ×2 (07:50→16:03)
[2016-11-13] MEDS: SPIRONOLACTONE 25 MG TABLET PO SCH (07:52)
[2016-11-13] MEDS: LACTOBACILLUS 1GM/ PACKET PO SCH ×3 (07:52→21:22)
[2016-11-13] MEDS: ISOSORBIDE MONONITRATE ER 60 MG TABLET PO SCH (07:52)
[2016-11-13] MEDS: FUROSEMIDE 20 MG/2 ML IV SCH (07:52)
[2016-11-13] MEDS: POLYETHYLENE GLYCOL 17 GM PACKET PO SCH (07:52)
[2016-11-13] MEDS: LISINOPRIL 5 MG TABLET PO SCH (07:53)
[2016-11-13] MEDS: PANTOPROZOLE 40MG TABLET PO SCH (07:53)
[2016-11-13 13:51] VITALS: BP 104/69
[2016-11-13] MEDS ORDERED: TEMAZEPAM 15 MG CAPSULE PO PRN (19:00)
[2016-11-13] MEDS ORDERED: ACETAMINOPHEN 325 MG TABLET PO PRN (19:00)
[2016-11-13] MEDS ORDERED: NITROGLYCERIN 0.4 MG BOTTLE (25 TABS) SL PRN (19:00)
[2016-11-13] MEDS ORDERED: ONDANSETRON 2MG/ML, 2ML IVPush PRN (19:00)
[2016-11-13] MEDS ORDERED: PROMETHAZINE 25 MG/ML, 1ML IM PRN (19:00)
[2016-11-13] MEDS ORDERED: LORazepam 1MG TABLET PO PRN (19:00)
[2016-11-13 19:30] VITALS: BP 110/60
[2016-11-13] MEDS: ATORVASTATIN 40 MG TABLET PO SCH (21:22)
[2016-11-14] MEDS: PIPERACILLIN/TAZO/PMX 4.5GM 100 ML IV SCH ×3 (00:54→15:59)
[2016-11-14 02:30] VITALS: BP 105/69
[2016-11-14] MEDS: OXYcodone/APAP 5/325MG TABLET PO PRN ×3 (03:46→20:29)
[2016-11-14] MEDS: ALUMINUM/MAG/SIMETHICONE 30 ML UDC PO PRN (03:50)
[2016-11-14 05:10] LABS: BLOOD UREA NITROGEN 21 mg/dL (7-18)
[2016-11-14 05:13] LABS: ASPARTATE AMINO TRANSFERASE 29 U/L (15-37); C-REACTIVE PROTEIN, QUANT 0.66 mg/dL (0.02-0.49)
[2016-11-14] MEDS: METOPROLOL TARTRATE 25 MG TABLET PO SCH ×2 (05:48→17:58)
[2016-11-14] MEDS: LINEZOLID 600 MG TABLET PO SCH ×2 (05:48→17:57)
[2016-11-14] MEDS: ASPIRIN 325 MG TABLET PO SCH (05:48)
[2016-11-14] MEDS: HEPARIN 5,000 UNITS/ML, 1ML SQ SCH ×3 (06:00→20:22)
[2016-11-14 07:35] VITALS: BP 99/66
[2016-11-14] MEDS: POLYETHYLENE GLYCOL 17 GM PACKET PO SCH (07:52)
[2016-11-14] MEDS: SPIRONOLACTONE 25 MG TABLET PO SCH (07:59)
[2016-11-14] MEDS: LACTOBACILLUS 1GM/ PACKET PO SCH ×3 (07:59→20:22)
[2016-11-14] MEDS: FUROSEMIDE 20 MG/2 ML IV SCH (07:59)
[2016-11-14] MEDS: PANTOPROZOLE 40MG TABLET PO SCH (08:00)
[2016-11-14] MEDS: ISOSORBIDE MONONITRATE ER 60 MG TABLET PO SCH (08:01)
[2016-11-14] MEDS: LISINOPRIL 5 MG TABLET PO SCH (08:02)
[2016-11-14 12:15] VITALS: BP 100/65
[2016-11-14 19:19] VITALS: BP 102/76
[2016-11-14] MEDS: ATORVASTATIN 40 MG TABLET PO SCH (20:22)
[2016-11-15] MEDS: PIPERACILLIN/TAZO/PMX 4.5GM 100 ML IV SCH ×3 (01:06→15:59)
[2016-11-15 01:30] VITALS: BP 93/60
[2016-11-15] MEDS: ASPIRIN 325 MG TABLET PO SCH (05:19)
[2016-11-15] MEDS: LINEZOLID 600 MG TABLET PO SCH ×2 (05:19→17:28)
[2016-11-15] MEDS: METOPROLOL TARTRATE 25 MG TABLET PO SCH ×2 (05:20→17:28)
[2016-11-15] MEDS: HEPARIN 5,000 UNITS/ML, 1ML SQ SCH ×3 (05:22→20:17)
[2016-11-15 06:45] VITALS: BP 95/60
[2016-11-15] MEDS: POLYETHYLENE GLYCOL 17 GM PACKET PO SCH (07:45)
[2016-11-15] MEDS: FUROSEMIDE 20 MG/2 ML IV SCH (07:54)
[2016-11-15] MEDS: PANTOPROZOLE 40MG TABLET PO SCH (07:55)
[2016-11-15] MEDS: SPIRONOLACTONE 25 MG TABLET PO SCH (07:55)
[2016-11-15] MEDS: ISOSORBIDE MONONITRATE ER 60 MG TABLET PO SCH (07:55)
[2016-11-15] MEDS: LACTOBACILLUS 1GM/ PACKET PO SCH ×3 (07:55→20:17)
[2016-11-15] MEDS: LISINOPRIL 5 MG TABLET PO SCH (07:56)
[2016-11-15 14:15] VITALS: BP 104/71
[2016-11-15] MEDS: OXYcodone/APAP 5/325MG TABLET PO PRN (15:59)
[2016-11-15 19:11] VITALS: BP 102/68
[2016-11-15] MEDS: ATORVASTATIN 40 MG TABLET PO SCH (20:17)
[2016-11-16] MEDS: PIPERACILLIN/TAZO/PMX 4.5GM 100 ML IV SCH ×3 (00:04→16:15)
[2016-11-16] MEDS: ALUMINUM/MAG/SIMETHICONE 30 ML UDC PO PRN ×2 (00:57→08:34)
[2016-11-16] MEDS: OXYcodone/APAP 5/325MG TABLET PO PRN ×2 (00:57→08:49)
[2016-11-16 03:05] VITALS: BP 100/66
[2016-11-16] MEDS: HEPARIN 5,000 UNITS/ML, 1ML SQ SCH ×2 (06:00→14:00)
[2016-11-16] MEDS: ASPIRIN 325 MG TABLET PO SCH (06:09)
[2016-11-16] MEDS: LINEZOLID 600 MG TABLET PO SCH ×2 (06:09→17:46)
[2016-11-16] MEDS: METOPROLOL TARTRATE 25 MG TABLET PO SCH ×2 (06:09→17:46)
[2016-11-16 07:40] VITALS: BP 107/54
[2016-11-16] MEDS: FUROSEMIDE 20 MG/2 ML IV SCH (08:35)
[2016-11-16] MEDS: ISOSORBIDE MONONITRATE ER 60 MG TABLET PO SCH (08:35)
[2016-11-16] MEDS: SPIRONOLACTONE 25 MG TABLET PO SCH (08:35)
[2016-11-16] MEDS: PANTOPROZOLE 40MG TABLET PO SCH (08:36)
[2016-11-16] MEDS: LISINOPRIL 5 MG TABLET PO SCH (08:36)
[2016-11-16] MEDS: POLYETHYLENE GLYCOL 17 GM PACKET PO SCH (08:36)
[2016-11-16] MEDS: LACTOBACILLUS 1GM/ PACKET PO SCH ×2 (08:37→16:00)
[2016-11-16 13:47] VITALS: BP 103/67
[2016-11-16 17:05] VITALS: BP 103/73
[2016-11-16] MEDS ORDERED: ASPI-650 PO (18:16)
[2016-11-16] MEDS ORDERED: FURO-93 IVPush (18:18)
[2016-11-16] MEDS ORDERED: [UNRECOGNIZED DRUG - CODE] SC (18:21)
[2016-11-16] MEDS ORDERED: LACT1POW9 PO (18:23)
[2016-11-16] MEDS ORDERED: OXYC5CAP4 PO (18:27)
[2016-11-16] MEDS ORDERED: OXYC1TAB7 PO (18:28)
[2016-11-16] MEDS ORDERED: NITR0.3T5 SL (18:34)
[2016-11-16] MEDS ORDERED: METO5TAB2 PO (18:36)
[2016-11-16] MEDS ORDERED: PIPE4.5V6 IVPush (18:39)
[2016-11-16 18:43] VITALS: BP 96/69
== END 2016-11-16 19:01 | DRG 871 ==
LOC: ED 22:14 → EDIP 10-29 01:19 → 5SO 10-29 11:34 → 3NE 11-12 17:41
PROVIDERS: ADMIT Internal Medicine
PROC: 0W9G30Z Drainage of Peritoneal Cavity with Drainage Device, Percutaneous Approach (ICD-10-PCS; principal; 2016-10-31)
DX: A41.9 Sepsis, unspecified organism (principal); K65.1 Peritoneal abscess; K85.10 Biliary acute pancreatitis without necrosis or infection; N17.0 Acute kidney failure with tubular necrosis; E43 Unspecified severe protein-calorie malnutrition; D50.9 Iron deficiency anemia, unspecified; E78.5 Hyperlipidemia, unspecified; E87.6 Hypokalemia; I25.10 Atherosclerotic heart disease of native coronary artery without angina pectoris; J44.9 Chronic obstructive pulmonary disease, unspecified; K21.9 Gastro-esophageal reflux disease without esophagitis; N20.0 Calculus of kidney; I95.9 Hypotension, unspecified; R62.7 Adult failure to thrive; I27.2 Other secondary pulmonary hypertension; I34.0 Nonrheumatic mitral (valve) insufficiency; M51.36 Other intervertebral disc degeneration, lumbar region; K80.20 Calculus of gallbladder without cholecystitis without obstruction; I50.9 Heart failure, unspecified; N40.0 Benign prostatic hyperplasia without lower urinary tract symptoms; I11.0 Hypertensive heart disease with heart failure; D63.8 Anemia in other chronic diseases classified elsewhere; I25.2 Old myocardial infarction; Z87.442 Personal history of urinary calculi; Z87.891 Personal history of nicotine dependence; Z95.1 Presence of aortocoronary bypass graft; Z90.49 Acquired absence of other specified parts of digestive tract; Z79.899 Other long term (current) drug therapy; Z82.49 Family history of ischemic heart disease and other diseases of the circulatory system; Z82.5 Family history of asthma and other chronic lower respiratory diseases; Z91.040 Latex allergy status; Z68.27 Body mass index [BMI] 27.0-27.9, adult
CPT/HCPCS: 36415; 49405; 71010; 74000; 74022; 74176; 74177; 75989; 80048; 80053; 80202; 81003; 82150; 82962; 83605; 83690; 83735; 84100; 84145; 84484; 85025; 85520; 85651; 86140; 87040; 87070; 87075; 87077; 87086; 87102; 87186; 87205; 93005; 93306; 96361; 96365; 96366; 96375; 96376; 99156; 99157; J1170; J1450; J1644; J2250; J2405; J2543; J2550; J3010; J3370; J3480; J3490; Q9967; C1729; C1769; J1940; J2270; J3475; J7030; J7040; J7050

== ENCOUNTER 2016-11-29 17:36 | Inpatient (IN) | payer MEDICAID ==
[~2016-11-29] VITALS: Ht 180.3 cm; Wt 68.6 kg
[~2016-11-29 17:36] MED LIST changes: +ASPI-650 PO; +CIPR500T87 PO; +FURO-93 IVPush; +LACT1POW9 PO; +METO5TAB2 PO; +NITR0.3T5 SL; +OXYC1TAB7 PO; +OXYC5CAP4 PO; +PIPE4.5V6 IVPush; +RANI150T8 PO; +[UNRECOGNIZED DRUG - CODE] SC
[2016-11-29 18:41] VITALS: BP 99/70
[2016-11-29] MEDS ORDERED: BISACODYL 10 MG SUPP PR PRN (20:30)
[2016-11-29] MEDS ORDERED: ACETAMINOPHEN 325 MG TABLET PO PRN (20:30)
[2016-11-29] MEDS ORDERED: ONDANSETRON 2MG/ML, 2ML IVPush PRN (20:30)
[2016-11-29] MEDS ORDERED: POLYETHYLENE GLYCOL 17 GM PACKET PO PRN (20:30)
[2016-11-29 22:53] VITALS: BP 105/72
[2016-11-29] MEDS: ATORVASTATIN 40 MG TABLET PO SCH (23:07)
[2016-11-29] MEDS: PANTOPROZOLE 40MG TABLET PO SCH (23:07)
[2016-11-29] MEDS: METOPROLOL TARTRATE 25 MG TABLET PO SCH (23:07)
[2016-11-29] MEDS: ALUMINUM/MAG/SIMETHICONE 30 ML UDC PO PRN (23:10)
[2016-11-29] MEDS: PLEASE ENTER HEIGHT AND WEIGHT MC SCH (23:10)
[2016-11-30 03:00] VITALS: BP 99/65
[2016-11-30] MEDS: PLEASE ENTER HEIGHT AND WEIGHT MC SCH ×3 (05:00→21:00)
[2016-11-30 06:33] VITALS: BP 104/70
[2016-11-30 06:35] LABS: HEMATOCRIT 31.8 % (39.2-51.8); HEMOGLOBIN 10.2 g/dL (13.7-18.0); WHITE BLOOD COUNT 7.6 x10^3/uL (3.4-10)
[2016-11-30] MEDS: METOPROLOL TARTRATE 25 MG TABLET PO SCH ×2 (06:35→17:37)
[2016-11-30 06:58] LABS: ASPARTATE AMINO TRANSFERASE 18 U/L (15-37); BLOOD UREA NITROGEN 7 mg/dL (7-18); FERRITIN 611.8 ng/mL (26-388); TOTAL IRON BINDING CAPACITY 296 mcg/dL (250-450)
[2016-11-30] MEDS: ASPIRIN 325 MG TABLET EC PO SCH (09:20)
[2016-11-30] MEDS: SENNA/DOCUSATE TABLET PO SCH (09:20)
[2016-11-30] MEDS: PANTOPROZOLE 40MG TABLET PO SCH ×2 (09:20→21:17)
[2016-11-30] MEDS: ISOSORBIDE MONONITRATE ER 60 MG TABLET PO SCH (09:20)
[2016-11-30] MEDS: SPIRONOLACTONE 25 MG TABLET PO SCH (09:20)
[2016-11-30 09:25] VITALS: BP 95/70
[2016-11-30 13:10] VITALS: BP 102/68
[2016-11-30] MEDS ORDERED: GOLYTELY 4,000ML ORAL.SOL PO ONE (15:00)
[2016-11-30 16:16] LABS: HEMATOCRIT 28.5 % (39.2-51.8); HEMOGLOBIN 9.4 g/dL (13.7-18.0)
[2016-11-30] MEDS ORDERED: MOVIPREP POWDER 1 PREP KIT PO ONE (17:00)
[2016-11-30 19:57] VITALS: BP 102/69
[2016-11-30] MEDS: ATORVASTATIN 40 MG TABLET PO SCH (21:17)
[2016-11-30 21:23] LABS: HEMATOCRIT 28.5 % (39.2-51.8); HEMOGLOBIN 9.3 g/dL (13.7-18.0)
[2016-11-30 22:04] LABS: OCCBLD OBC PASS
[2016-12-01 00:31] VITALS: BP 94/60
[2016-12-01] MEDS ORDERED: BISACODYL 5 MG EC TABLET PO ONE (05:00)
[2016-12-01] MEDS: PLEASE ENTER HEIGHT AND WEIGHT MC SCH (05:00)
[2016-12-01 05:13] VITALS: BP 94/59
[2016-12-01 08:29] VITALS: BP 107/69
[2016-12-01] MEDS: ALUMINUM/MAG/SIMETHICONE 30 ML UDC PO PRN (08:59)
[2016-12-01] MEDS: ISOSORBIDE MONONITRATE ER 60 MG TABLET PO SCH (08:59)
[2016-12-01] MEDS: SENNA/DOCUSATE TABLET PO SCH (08:59)
[2016-12-01] MEDS: PANTOPROZOLE 40MG TABLET PO SCH ×2 (08:59→20:38)
[2016-12-01] MEDS: ASPIRIN 325 MG TABLET EC PO SCH (08:59)
[2016-12-01] MEDS: SPIRONOLACTONE 25 MG TABLET PO SCH (08:59)
[2016-12-01] MEDS: METOPROLOL TARTRATE 25 MG TABLET PO SCH ×2 (08:59→16:45)
[2016-12-01 11:47] LABS: HEMATOCRIT 30.7 % (39.2-51.8)
[2016-12-01 14:24] VITALS: BP 99/66
[2016-12-01 19:27] VITALS: BP_SYST 83; BP_SYST 95; BP_DIAS 47; BP_DIAS 49
[2016-12-01] MEDS: ATORVASTATIN 40 MG TABLET PO SCH (20:38)
[2016-12-02] MEDS: METOPROLOL TARTRATE 25 MG TABLET PO SCH (06:44)
[2016-12-02 08:45] VITALS: BP 97/64
[2016-12-02] MEDS: SENNA/DOCUSATE TABLET PO SCH (09:00)
[2016-12-02] MEDS ORDERED: MULTIVITAMIN 1 TABLET PO SCH (09:00)
[2016-12-02] MEDS: ISOSORBIDE MONONITRATE ER 60 MG TABLET PO SCH (09:13)
[2016-12-02] MEDS: ASPIRIN 325 MG TABLET EC PO SCH (09:14)
[2016-12-02] MEDS: PANCRELIPASE 24,000 CAPSULE.DR PO SCH ×2 (09:14→13:00)
[2016-12-02] MEDS: SPIRONOLACTONE 25 MG TABLET PO SCH (09:14)
[2016-12-02] MEDS: PANTOPROZOLE 40MG TABLET PO SCH (09:14)
[2016-12-02 11:38] LABS: HEMATOCRIT 29.3 % (39.2-51.8); HEMOGLOBIN 9.4 g/dL (13.7-18.0)
[2016-12-02] MEDS ORDERED: SPIR25TA PO (15:21)
[2016-12-02] MEDS ORDERED: MULT1TAB60 PO (15:21)
[2016-12-02] MEDS ORDERED: SENN1TAB7 PO (15:21)
[2016-12-02] MEDS ORDERED: ATOR40TA78 PO (15:21)
[2016-12-02] MEDS ORDERED: ISOS60TA36 PO (15:21)
[2016-12-02] MEDS ORDERED: METO25TA35 PO (15:21)
[2016-12-02] MEDS ORDERED: LIPA1CAP61 PO (15:21)
[2016-12-02] MEDS ORDERED: PANT40TA5 PO (15:21)
[2016-12-02 15:39] VITALS: BP 106/72
== END 2016-12-02 16:36 | disposition home or self-care (01) | DRG 378 ==
LOC: 5SO 18:33 → DCLOUNGE 12-02 16:05
PROVIDERS: ADMIT Family Medicine; ATTEND Family Medicine
DX: K92.2 Gastrointestinal hemorrhage, unspecified (principal); I50.22 Chronic systolic (congestive) heart failure; I11.0 Hypertensive heart disease with heart failure; D63.8 Anemia in other chronic diseases classified elsewhere; E78.5 Hyperlipidemia, unspecified; I25.10 Atherosclerotic heart disease of native coronary artery without angina pectoris; I25.2 Old myocardial infarction; I25.5 Ischemic cardiomyopathy; J44.9 Chronic obstructive pulmonary disease, unspecified; K21.9 Gastro-esophageal reflux disease without esophagitis; Z79.2 Long term (current) use of antibiotics; Z79.82 Long term (current) use of aspirin; Z82.49 Family history of ischemic heart disease and other diseases of the circulatory system; Z87.891 Personal history of nicotine dependence; Z95.1 Presence of aortocoronary bypass graft
CPT/HCPCS: 36415; 74270; 80053; 82272; 82378; 82728; 83540; 83550; 85014; 85018; 85025; J2405

== ENCOUNTER 2016-12-08 06:20 | Inpatient (IN) | payer MEDICAID ==
[2016-12-08] VITALS (7 sets, daily range): BP systolic 90–121; BP diastolic 65–87
[~2016-12-08] VITALS: Ht 180.3 cm; Wt 81.7 kg
[~2016-12-08 06:20] MED LIST changes: +LIPA1CAP61 PO; +MULT1TAB60 PO; +OXYC5CAP2 PO; -OXYC5CAP4 PO; +SENN1TAB7 PO; +SPIR25TA PO
[2016-12-08] MEDS ORDERED: ALBUTEROL/IPRATROPIUM 2.5MG/0.5MG, 3 ML ONE (06:43)
[2016-12-08] MEDS ORDERED: SODIUM CHLORIDE FLUSH 10ML SYR IVF ONE (07:00)
[2016-12-08 07:18] LABS: HEMATOCRIT 32.2 % (39.2-51.8); HEMOGLOBIN 10.3 g/dL (13.7-18.0); WHITE BLOOD COUNT 6.4 x10^3/uL (3.4-10)
[2016-12-08 07:32] LABS: ASPARTATE AMINO TRANSFERASE 15 U/L (15-37); BLOOD UREA NITROGEN 12 mg/dL (7-18)
[2016-12-08 07:37] LABS: IS PT STATUS REG ER OR PRE ER? YES
[2016-12-08] MEDS ORDERED: OMNIPAQUE 350 MG/ML, 100ML BOTTLE ONE (08:35)
[2016-12-08] MEDS ORDERED: HEPARIN 25,000 UNITS/500ML PMX 500 ML ONE (08:43)
[2016-12-08] MEDS ORDERED: NITROGLYCERIN SINGLE TAB 0.4 MG SL ONE (08:43)
[2016-12-08] MEDS ORDERED: HEPARIN 5,000 UNITS/ML, 1ML ONE ×2 (08:44→09:06)
[2016-12-08] MEDS: NITROGLYCERIN SINGLE TAB 0.4 MG SL PRN ×2 (08:49→09:26)
[2016-12-08] MEDS ORDERED: HEPARIN 25,000 UNITS/500ML PMX 500 ML IV PRN ×2 (09:00→10:30)
[2016-12-08] MEDS ORDERED: HEPARIN 5,000 UNITS/ML, 1ML IV ONE ×2 (09:00→10:30)
[2016-12-08] MEDS ORDERED: HEPARIN 5,000 UNITS/ML, 1ML IV PRN (09:00)
[2016-12-08 09:10] LABS: DAU SCREEN DISCLAIMER
[2016-12-08] MEDS ORDERED: POTASSIUM CHLORIDE 20 MEQ TAB.ER.PRT PO ONE (09:30)
[2016-12-08] MEDS ORDERED: MAALOX/HYOSCYAMINE/LIDOCAINE 45 ML BTL PO PRN (10:00)
[2016-12-08] MEDS ORDERED: NITROGLYCERIN 0.4 MG BOTTLE (25 TABS) SL PRN (10:00)
[2016-12-08] MEDS ORDERED: ACETAMINOPHEN 650 MG/20.3 ML UDC PO PRN (10:00)
[2016-12-08] MEDS: morphine SULFATE 10 MG/ML, 1ML IV PRN ×5 (11:23→23:17)
[2016-12-08] MEDS: PANCRELIPASE 24,000 CAPSULE.DR PO SCH ×2 (13:20→18:07)
[2016-12-08 13:28] LABS: IS PT STATUS REG ER OR PRE ER? NO
[2016-12-08] MEDS: OXYcodone/APAP 5/325MG TABLET PO SCH ×2 (15:30→20:43)
[2016-12-08] MEDS: HEPARIN 5,000 UNITS/ML, 1ML IV PRN ×2 (16:08→23:02)
[2016-12-08] MEDS: METOPROLOL TARTRATE 25 MG TABLET PO SCH (18:07)
[2016-12-08 19:53] LABS: IS PT STATUS REG ER OR PRE ER? NO
[2016-12-08] MEDS: ATORVASTATIN 40 MG TABLET PO SCH (20:44)
[2016-12-08] MEDS: PANTOPROZOLE 40MG TABLET PO SCH (20:44)
[2016-12-08] MEDS: SODIUM CHLORIDE FLUSH 10ML SYR IVF SCH (20:45)
[2016-12-09 01:00] VITALS: BP 96/63
[2016-12-09] MEDS ORDERED: NITROGLYCERIN/D5W PMX 250 ML IV PRN (01:30)
[2016-12-09] MEDS ORDERED: ACETAMINOPHEN 650 MG/20.3 ML UDC PO PRN (02:10)
[2016-12-09 02:35] VITALS: BP 94/65
[2016-12-09] MEDS: OXYcodone/APAP 5/325MG TABLET PO SCH ×4 (03:28→23:13)
[2016-12-09 05:06] LABS: HEMOGLOBIN 9.3 g/dL (13.7-18.0); WHITE BLOOD COUNT 7.2 x10^3/uL (3.4-10)
[2016-12-09 05:20] LABS: BLOOD UREA NITROGEN 12 mg/dL (7-18)
[2016-12-09] MEDS: HEPARIN 5,000 UNITS/ML, 1ML IV PRN (05:45)
[2016-12-09 05:47] VITALS: BP 91/62
[2016-12-09 06:30] VITALS: BP 94/64
[2016-12-09] MEDS: PANCRELIPASE 24,000 CAPSULE.DR PO SCH ×3 (07:00→16:52)
[2016-12-09] MEDS ORDERED: SODIUM CHLORIDE 0.9% 1,000 ML IV SCH (08:10)
[2016-12-09] MEDS ORDERED: FENTANYL PF 100 MCG/2ML ONE ×2 (08:45→09:22)
[2016-12-09] MEDS ORDERED: MIDAZOLAM 1 MG/ML, 5ML ONE ×3 (08:45→10:51)
[2016-12-09] MEDS ORDERED: LIDOCAINE 2%, 20ML ONE (08:46)
[2016-12-09] MEDS ORDERED: PRASUGREL 10 MG TABLET ONE ×2 (08:46→08:47)
[2016-12-09] MEDS ORDERED: VERAPAMIL 2.5 MG/ML, 2ML ONE (08:46)
[2016-12-09] MEDS ORDERED: BIVALIRUDIN 250 MG ONE (08:46)
[2016-12-09] MEDS ORDERED: HEPARIN 1,000 UNITS/ML, 10ML ONE (08:46)
[2016-12-09] MEDS: LISINOPRIL 5 MG TABLET PO SCH (09:00)
[2016-12-09] MEDS: SPIRONOLACTONE 25 MG TABLET PO SCH (09:00)
[2016-12-09] MEDS: SODIUM CHLORIDE FLUSH 10ML SYR IVF SCH ×2 (09:00→19:58)
[2016-12-09] MEDS: FUROSEMIDE 20 MG TABLET PO SCH (09:00)
[2016-12-09 09:08] LABS: IS PT STATUS REG ER OR PRE ER? NO
[2016-12-09] MEDS ORDERED: DIPHENHYDRAMINE 50 MG/ML, 1ML ONE (09:22)
[2016-12-09] MEDS ORDERED: BIVALIRUDIN 250 MG in DEXTROSE 5% 50 ML IV SCH (10:16)
[2016-12-09] MEDS ORDERED: ACETAMINOPHEN 325 MG TABLET PO PRN (10:30)
[2016-12-09] MEDS ORDERED: MIDAZOLAM 1 MG/ML, 2ML IVPush PRN (10:30)
[2016-12-09] MEDS ORDERED: PHENYLEPHRINE 10 MG/ML ONE (10:36)
[2016-12-09] MEDS: morphine SULFATE 10 MG/ML, 1ML IV PRN (10:36)
[2016-12-09] MEDS ORDERED: FUROSEMIDE 40 MG/4 ML IV ONE (11:00)
[2016-12-09 12:25] VITALS: BP 93/62
[2016-12-09] MEDS: ASPIRIN 325 MG TABLET EC PO SCH (14:36)
[2016-12-09] MEDS: ISOSORBIDE MONONITRATE ER 60 MG TABLET PO SCH (14:37)
[2016-12-09] MEDS: METOPROLOL TARTRATE 25 MG TABLET PO SCH ×2 (14:37→16:36)
[2016-12-09] MEDS: MULTIVITAMIN 1 TABLET PO SCH (14:38)
[2016-12-09] MEDS: PANTOPROZOLE 40MG TABLET PO SCH ×2 (14:38→19:58)
[2016-12-09 16:59] LABS: IS PT STATUS REG ER OR PRE ER? NO
[2016-12-09 19:45] VITALS: BP 94/61
[2016-12-09] MEDS: ATORVASTATIN 40 MG TABLET PO SCH (19:58)
[2016-12-10 02:26] VITALS: BP 95/61
[2016-12-10 05:00] LABS: HEMATOCRIT 26.9 % (39.2-51.8); HEMOGLOBIN 8.7 g/dL (13.7-18.0); WHITE BLOOD COUNT 5.9 x10^3/uL (3.4-10)
[2016-12-10 05:13] LABS: BLOOD UREA NITROGEN 15 mg/dL (7-18)
[2016-12-10] MEDS: OXYcodone/APAP 5/325MG TABLET PO SCH ×2 (05:57→08:54)
[2016-12-10 07:39] VITALS: BP 98/64
[2016-12-10] MEDS: MULTIVITAMIN 1 TABLET PO SCH (08:47)
[2016-12-10] MEDS: ISOSORBIDE MONONITRATE ER 60 MG TABLET PO SCH (08:49)
[2016-12-10] MEDS: METOPROLOL TARTRATE 25 MG TABLET PO SCH (08:49)
[2016-12-10] MEDS: PANTOPROZOLE 40MG TABLET PO SCH (08:49)
[2016-12-10] MEDS: PANCRELIPASE 24,000 CAPSULE.DR PO SCH ×2 (08:49→13:19)
[2016-12-10] MEDS: SODIUM CHLORIDE FLUSH 10ML SYR IVF SCH (08:50)
[2016-12-10] MEDS: ASPIRIN 325 MG TABLET EC PO SCH (08:54)
[2016-12-10] MEDS ORDERED: PRASUGREL 10 MG TABLET PO SCH (09:00)
[2016-12-10] MEDS: LISINOPRIL 5 MG TABLET PO SCH (10:13)
[2016-12-10] MEDS: FUROSEMIDE 20 MG TABLET PO SCH (10:13)
[2016-12-10] MEDS: SPIRONOLACTONE 25 MG TABLET PO SCH (10:13)
[2016-12-10] MEDS ORDERED: CLOPIDOGREL 300 MG TABLET PO ONE (12:30)
[2016-12-10 14:35] VITALS: BP 94/57
[2016-12-10] MEDS ORDERED: ASPIRIN 81 MG TABLET CHEW PO SCH (15:30)
[2016-12-10] MEDS ORDERED: SPIR25TA PO (16:29)
[2016-12-10] MEDS ORDERED: FURO-93 IVPush (16:29)
[2016-12-10] MEDS ORDERED: CLOP75TA PO (16:29)
[2016-12-10] MEDS ORDERED: LIPA1CAP61 PO (16:29)
[2016-12-10] MEDS ORDERED: NITR0.4T SL (16:29)
[2016-12-10] MEDS ORDERED: PANT40TA5 PO (16:29)
[2016-12-10] MEDS ORDERED: MULT1TAB60 PO (16:29)
[2016-12-10] MEDS ORDERED: OXYC1TAB7 PO (16:29)
[2016-12-10] MEDS ORDERED: ATOR40TA78 PO (16:29)
[2016-12-10] MEDS ORDERED: ASPI-515 PO (16:29)
[2016-12-10] MEDS ORDERED: METO25TA35 PO (16:29)
[2016-12-10] MEDS ORDERED: METO5TAB57 PO (16:29)
[2016-12-10] MEDS ORDERED: LISI2.5T PO (16:29)
[2016-12-10] MEDS ORDERED: FURO-93 PO (16:39)
[2016-12-10] MEDS ORDERED: OXYC-302 PO (17:29)
[2016-12-11] MEDS ORDERED: CLOPIDOGREL 75 MG TABLET PO SCH (09:00)
== END 2016-12-10 18:18 | disposition home or self-care (01) | DRG 249 ==
LOC: ED 06:49 → EDIP 09:10 → 5SO 10:22
PROC: 02713EZ Dilation of Coronary Artery, Two Arteries with Two Intraluminal Devices, Percutaneous Approach (ICD-10-PCS; principal; 2016-12-09)
PROC: 4A023N7 Measurement of Cardiac Sampling and Pressure, Left Heart, Percutaneous Approach (ICD-10-PCS; 2016-12-09)
PROC: B2111ZZ Fluoroscopy of Multiple Coronary Arteries using Low Osmolar Contrast (ICD-10-PCS; 2016-12-09)
PROC: B2151ZZ Fluoroscopy of Left Heart using Low Osmolar Contrast (ICD-10-PCS; 2016-12-09)
DX: I21.4 Non-ST elevation (NSTEMI) myocardial infarction (principal); D61.818 Other pancytopenia; K86.3 Pseudocyst of pancreas; I11.0 Hypertensive heart disease with heart failure; E44.1 Mild protein-calorie malnutrition; I50.42 Chronic combined systolic (congestive) and diastolic (congestive) heart failure; F11.20 Opioid dependence, uncomplicated; K86.1 Other chronic pancreatitis; J44.1 Chronic obstructive pulmonary disease with (acute) exacerbation; D63.8 Anemia in other chronic diseases classified elsewhere; E78.5 Hyperlipidemia, unspecified; F17.210 Nicotine dependence, cigarettes, uncomplicated; G89.29 Other chronic pain; I25.10 Atherosclerotic heart disease of native coronary artery without angina pectoris; I25.2 Old myocardial infarction; I25.5 Ischemic cardiomyopathy; M43.06 Spondylolysis, lumbar region; K21.9 Gastro-esophageal reflux disease without esophagitis; R91.1 Solitary pulmonary nodule; R09.02 Hypoxemia; Z79.2 Long term (current) use of antibiotics; Z82.49 Family history of ischemic heart disease and other diseases of the circulatory system; Z87.19 Personal history of other diseases of the digestive system; Z87.442 Personal history of urinary calculi; Z90.49 Acquired absence of other specified parts of digestive tract; Z95.1 Presence of aortocoronary bypass graft; Z98.61 Coronary angioplasty status; Z91.040 Latex allergy status; Z90.89 Acquired absence of other organs; Z79.899 Other long term (current) drug therapy; Z79.82 Long term (current) use of aspirin
CPT/HCPCS: 36415; 71010; 71275; 74176; 80048; 80053; 80307; 82040; 83690; 83880; 84484; 85025; 85379; 85520; 93005; 93306; 93458; 96365; 96372; 96376; 99156; 99157; C1760; C1876; C1894; C9600; J0583; J1644; J2250; J3010; J3490; Q9967; C1725; C1769; C1887; J1200; J2270; J2370

== ENCOUNTER 2016-12-24 17:07 | Inpatient (IN) | payer MEDICAID ==
[~2016-12-24] VITALS: Ht 180.3 cm; Wt 77.0 kg
[~2016-12-24 17:07] MED LIST changes: +ASPI-515 PO; +CLOP75TA PO; +FURO-93 PO; +METO5TAB57 PO; +NITR0.4T SL; +OXYC-302 PO
[2016-12-24] MEDS ORDERED: PANTOPRAZOLE 80 MG in SODIUM CHLORIDE 0.9% 100 ML IV SCH (18:24)
[2016-12-24] MEDS ORDERED: PANTOPRAZOLE 80 MG in SODIUM CHLORIDE 0.9% 50 ML IVPB ONE (18:24)
[2016-12-24 18:46] LABS: HEMATOCRIT 31.3 % (39.2-51.8); HEMOGLOBIN 10.4 g/dL (13.7-18.0); WHITE BLOOD COUNT 9.5 x10^3/uL (3.4-10)
[2016-12-24 18:57] LABS: ASPARTATE AMINO TRANSFERASE 12 U/L (15-37); BLOOD UREA NITROGEN 42 mg/dL (7-18)
[2016-12-24] MEDS ORDERED: SODIUM CHLORIDE 0.9% 1,000ML IVBOLUS ONE ×2 (19:00→20:00)
[2016-12-24] MEDS ORDERED: BISACODYL 10 MG SUPP PR PRN (20:30)
[2016-12-24] MEDS ORDERED: ACETAMINOPHEN 325 MG TABLET PO PRN (20:30)
[2016-12-24] MEDS: PANTOPRAZOLE 80 MG in SODIUM CHLORIDE 0.9% 100 ML IV SCH (20:30)
[2016-12-24] MEDS ORDERED: PANTOPRAZOLE 80 MG in SODIUM CHLORIDE 0.9% 50 ML IV ONE (20:30)
[2016-12-24] MEDS ORDERED: NITROGLYCERIN 0.4 MG BOTTLE (25 TABS) SL PRN (20:30)
[2016-12-24] MEDS ORDERED: OXYcodone/APAP 5/325MG TABLET PO PRN (20:30)
[2016-12-24] MEDS ORDERED: ONDANSETRON 2MG/ML, 2ML IVPush PRN (20:30)
[2016-12-24] MEDS: SODIUM CHLORIDE FLUSH 10ML SYR IVF SCH (21:00)
[2016-12-24] MEDS: METOPROLOL TARTRATE 25 MG TABLET PO SCH (21:29)
[2016-12-24 22:41] VITALS: BP 97/66
[2016-12-24] MEDS: PANCRELIPASE 24,000 CAPSULE.DR PO SCH (23:25)
[2016-12-24] MEDS: METOCLOPRAMIDE 10MG TABLET PO SCH (23:25)
[2016-12-24] MEDS: ATORVASTATIN 40 MG TABLET PO SCH (23:26)
[2016-12-25 00:57] LABS: HEMATOCRIT 27.9 % (39.2-51.8); HEMOGLOBIN 9.2 g/dL (13.7-18.0)
[2016-12-25 03:45] VITALS: BP 91/56
[2016-12-25] MEDS: PANTOPRAZOLE 80 MG in SODIUM CHLORIDE 0.9% 100 ML IV SCH (05:18)
[2016-12-25] MEDS: METOPROLOL TARTRATE 25 MG TABLET PO SCH ×2 (05:47→16:48)
[2016-12-25] MEDS: PANCRELIPASE 24,000 CAPSULE.DR PO SCH ×3 (06:31→16:47)
[2016-12-25 06:40] LABS: HEMATOCRIT 27.8 % (39.2-51.8); HEMOGLOBIN 9.2 g/dL (13.7-18.0); WHITE BLOOD COUNT 6.1 x10^3/uL (3.4-10)
[2016-12-25 06:47] LABS: ASPARTATE AMINO TRANSFERASE 11 U/L (15-37); BLOOD UREA NITROGEN 28 mg/dL (7-18)
[2016-12-25] MEDS: METOCLOPRAMIDE 10MG TABLET PO SCH ×3 (08:00→16:48)
[2016-12-25 08:11] VITALS: BP 92/59
[2016-12-25] MEDS ORDERED: PROPOFOL 10 MG/ML, 50ML ONE (08:54)
[2016-12-25] MEDS ORDERED: MIDAZOLAM 1 MG/ML, 2ML ONE (08:54)
[2016-12-25] MEDS ORDERED: PROPOFOL 10 MG/ML, 20ML ONE (08:54)
[2016-12-25] MEDS ORDERED: FENTANYL PF 100 MCG/2ML ONE (08:55)
[2016-12-25] MEDS: MULTIVITAMIN 1 TABLET PO SCH (09:00)
[2016-12-25] MEDS: CLOPIDOGREL 75 MG TABLET PO SCH (09:00)
[2016-12-25] MEDS: LISINOPRIL 5 MG TABLET PO SCH (09:00)
[2016-12-25] MEDS: FUROSEMIDE 20 MG TABLET PO SCH (09:00)
[2016-12-25] MEDS: SPIRONOLACTONE 25 MG TABLET PO SCH (09:00)
[2016-12-25] MEDS: SODIUM CHLORIDE FLUSH 10ML SYR IVF SCH ×2 (09:00→22:44)
[2016-12-25] MEDS: ASPIRIN 81 MG TABLET EC PO SCH (09:00)
[2016-12-25] MEDS ORDERED: EPHEDRINE 50 MG/ML, 1ML ONE ×2 (09:21→09:30)
[2016-12-25] MEDS ORDERED: FENTANYL PF 100 MCG/2ML IV PRN (09:30)
[2016-12-25] MEDS ORDERED: morphine SULFATE 10 MG/ML, 1ML IV PRN (09:30)
[2016-12-25] MEDS ORDERED: MEPERIDINE/PF 25MG/0.5ML IVPush PRN (09:30)
[2016-12-25] MEDS ORDERED: ONDANSETRON 2MG/ML, 2ML IVPush PRN (09:30)
[2016-12-25] MEDS ORDERED: LIDOCAINE 2% VISCOUS 15 ML UDC MM PRN (09:30)
[2016-12-25] MEDS ORDERED: OXYcodone 5 MG/5 ML ORAL.SOL UDC PO PRN (09:30)
[2016-12-25] MEDS: SUCRALFATE 1 GM/10 ML UDC PO SCH ×3 (11:35→22:44)
[2016-12-25 12:24] LABS: HEMATOCRIT 28.8 % (39.2-51.8); HEMOGLOBIN 9.4 g/dL (13.7-18.0)
[2016-12-25 13:57] VITALS: BP 92/59
[2016-12-25] MEDS: PANTOPRAZOLE GRAN. PKT 40 MG PO SCH ×2 (16:30→16:47)
[2016-12-25 19:08] VITALS: BP 92/53
[2016-12-25 19:10] LABS: HEMATOCRIT 24.9 % (39.2-51.8); HEMOGLOBIN 8.2 g/dL (13.7-18.0)
[2016-12-25] MEDS: ATORVASTATIN 40 MG TABLET PO SCH (22:44)
[2016-12-26 00:14] VITALS: BP 91/55
[2016-12-26 04:49] VITALS: BP 99/66
[2016-12-26] MEDS ORDERED: METOPROLOL TARTRATE 25 MG TABLET PO SCH (06:00)
[2016-12-26 06:29] VITALS: BP 98/63
[2016-12-26] MEDS: SUCRALFATE 1 GM/10 ML UDC PO SCH ×2 (06:29→11:30)
[2016-12-26 07:39] VITALS: BP 92/57
[2016-12-26] MEDS: SODIUM CHLORIDE FLUSH 10ML SYR IVF SCH (09:32)
[2016-12-26] MEDS: SPIRONOLACTONE 25 MG TABLET PO SCH (09:33)
[2016-12-26] MEDS: FUROSEMIDE 20 MG TABLET PO SCH (09:33)
[2016-12-26] MEDS: LISINOPRIL 5 MG TABLET PO SCH (09:33)
[2016-12-26] MEDS: PANTOPRAZOLE GRAN. PKT 40 MG PO SCH (09:36)
[2016-12-26] MEDS: MULTIVITAMIN 1 TABLET PO SCH (09:37)
[2016-12-26] MEDS: CLOPIDOGREL 75 MG TABLET PO SCH (09:38)
[2016-12-26] MEDS: ASPIRIN 81 MG TABLET EC PO SCH (09:38)
[2016-12-26] MEDS: METOCLOPRAMIDE 10MG TABLET PO SCH ×2 (09:38→13:34)
[2016-12-26] MEDS: PANCRELIPASE 24,000 CAPSULE.DR PO SCH ×2 (09:38→09:39)
[2016-12-26 13:58] VITALS: BP 96/42
[2016-12-26] MEDS ORDERED: SUCR1ORA5 PO (14:45)
[2016-12-26] MEDS ORDERED: LIDO15SO3 MM (14:45)
[2016-12-26] MEDS ORDERED: PANT40GR PO (14:45)
== END 2016-12-26 17:00 | disposition home or self-care (01) | DRG 368 ==
LOC: ED 17:56 → EDIP 20:16 → 4NOR 22:25 → DCLOUNGE 12-26 15:32
PROVIDERS: ADMIT Internal Medicine; ATTEND Internal Medicine
PROC: 0W3P8ZZ Control Bleeding in Gastrointestinal Tract, Via Natural or Artificial Opening Endoscopic (ICD-10-PCS; principal; 2016-12-25 09:00)
DX: I85.01 Esophageal varices with bleeding (principal); E43 Unspecified severe protein-calorie malnutrition; K65.1 Peritoneal abscess; K85.10 Biliary acute pancreatitis without necrosis or infection; I11.0 Hypertensive heart disease with heart failure; I50.22 Chronic systolic (congestive) heart failure; D63.8 Anemia in other chronic diseases classified elsewhere; Z68.23 Body mass index [BMI] 23.0-23.9, adult; E78.5 Hyperlipidemia, unspecified; F17.200 Nicotine dependence, unspecified, uncomplicated; G89.29 Other chronic pain; I25.10 Atherosclerotic heart disease of native coronary artery without angina pectoris; I25.5 Ischemic cardiomyopathy; J44.9 Chronic obstructive pulmonary disease, unspecified; K21.0 Gastro-esophageal reflux disease with esophagitis; K26.9 Duodenal ulcer, unspecified as acute or chronic, without hemorrhage or perforation; N40.0 Benign prostatic hyperplasia without lower urinary tract symptoms; Z79.2 Long term (current) use of antibiotics; Z82.49 Family history of ischemic heart disease and other diseases of the circulatory system; Z91.040 Latex allergy status; Z87.442 Personal history of urinary calculi; I25.2 Old myocardial infarction; Z90.49 Acquired absence of other specified parts of digestive tract; Z95.5 Presence of coronary angioplasty implant and graft
CPT/HCPCS: 36415; 80053; 83690; 85014; 85018; 85025; 85610; 86850; 86900; 86923; 93005; 93975; 96365; 96366; J2250; J2704; J3010; C9113; J7030

== ENCOUNTER 2017-02-04 17:14 | Emergency (ER) | payer MEDICAID ==
[~2017-02-04] VITALS: Ht 180.3 cm; Wt 80.0 kg
[~2017-02-04 17:14] MED LIST changes: +LIDO15SO3 MM; +PANT40GR PO; +SUCR1ORA5 PO
[2017-02-04 17:28] VITALS: BP 118/93
[2017-02-04] MEDS ORDERED: SODIUM CHLORIDE FLUSH 10ML SYR IVF ONE (18:00)
[2017-02-04 18:18] LABS: HEMATOCRIT 41.3 % (39.2-51.8); HEMOGLOBIN 13.7 g/dL (13.7-18.0); WHITE BLOOD COUNT 6.8 x10^3/uL (3.4-10)
[2017-02-04 18:26] LABS: BLOOD UREA NITROGEN 17 mg/dL (7-18)
[2017-02-04] MEDS ORDERED: OMNIPAQUE 350 MG/ML, 100ML BOTTLE ONE (20:00)
== END 2017-02-04 20:35 | disposition home or self-care (01) ==
LOC: ED 18:10
DX: K11.21 Acute sialoadenitis (principal); I10 Essential (primary) hypertension; F17.200 Nicotine dependence, unspecified, uncomplicated; J44.9 Chronic obstructive pulmonary disease, unspecified; I25.2 Old myocardial infarction; I25.10 Atherosclerotic heart disease of native coronary artery without angina pectoris; K21.9 Gastro-esophageal reflux disease without esophagitis
CPT/HCPCS: 36415; 70491; 80048; 82040; 85025; 99285; Q9967

== ENCOUNTER 2017-04-15 11:54 | Emergency (ER) | payer MEDICAID ==
[~2017-04-15] VITALS: Ht 180.3 cm; Wt 85.8 kg
[~2017-04-15 11:54] MED LIST changes: +HEPA500041 SC; -[UNRECOGNIZED DRUG - CODE] SC
[2017-04-15 12:01] VITALS: BP 123/83
== END 2017-04-15 13:25 | disposition home or self-care (01) ==
LOC: ED 13:10
DX: Z76.0 Encounter for issue of repeat prescription (principal); I10 Essential (primary) hypertension; I25.10 Atherosclerotic heart disease of native coronary artery without angina pectoris; I25.2 Old myocardial infarction; J44.9 Chronic obstructive pulmonary disease, unspecified
CPT/HCPCS: 99283

== ENCOUNTER → 2017-05-09 | Outpatient (CLI) | payer MEDICAID | END | disposition home or self-care (01) | LOC: CFH 10:05 | PROVIDERS: ATTEND Internal Medicine Cardiovascular Disease | DX: I25.2 Old myocardial infarction (principal); I08.1 Rheumatic disorders of both mitral and tricuspid valves; I10 Essential (primary) hypertension; F17.210 Nicotine dependence, cigarettes, uncomplicated; Z95.5 Presence of coronary angioplasty implant and graft | CPT/HCPCS: 93306 ==

== ENCOUNTER 2017-05-18 21:48 | Emergency (ER) | payer MEDICAID ==
[~2017-05-18] VITALS: Ht 180.3 cm; Wt 87.0 kg
[2017-05-18 21:55] VITALS: BP 134/90
[2017-05-18] MEDS ORDERED: HYDROcodone/APAP 5/325 TABLET PO STA (22:17)
[2017-05-18] MEDS ORDERED: HYDROcodone/APAP 5/325 TABLET ONE (22:23)
== END 2017-05-18 23:07 | disposition home or self-care (01) ==
LOC: ED 22:20
DX: K08.89 Other specified disorders of teeth and supporting structures (principal); J44.9 Chronic obstructive pulmonary disease, unspecified; F17.210 Nicotine dependence, cigarettes, uncomplicated; K21.9 Gastro-esophageal reflux disease without esophagitis; I10 Essential (primary) hypertension; I25.2 Old myocardial infarction; I25.10 Atherosclerotic heart disease of native coronary artery without angina pectoris
CPT/HCPCS: 99283

== ENCOUNTER 2017-06-03 21:57 | Emergency (ER) | payer MEDICAID ==
[~2017-06-03] VITALS: Ht 180.3 cm; Wt 88.0 kg
[2017-06-03 22:20] VITALS: BP 106/64
[2017-06-03 22:50] LABS: RAPID INFLUENZA A POSITIVE (Negative); RAPID INFLUENZA B Negative (Negative)
== END 2017-06-04 | disposition home or self-care (01) ==
LOC: ED 23:59
DX: J09.X2 Influenza due to identified novel influenza A virus with other respiratory manifestations (principal); I25.10 Atherosclerotic heart disease of native coronary artery without angina pectoris; K21.9 Gastro-esophageal reflux disease without esophagitis; I25.2 Old myocardial infarction; I11.9 Hypertensive heart disease without heart failure; J44.9 Chronic obstructive pulmonary disease, unspecified; Z90.49 Acquired absence of other specified parts of digestive tract
CPT/HCPCS: 71046; 87400; 99285

== ENCOUNTER 2017-07-17 10:58 | Emergency (ER) | payer MEDICAID ==
[~2017-07-17] VITALS: Ht 180.3 cm; Wt 90.6 kg
[2017-07-17 11:00] VITALS: BP 128/87
[2017-07-17] MEDS ORDERED: ACETAMINOPHEN 500 MG TABLET ONE (11:27)
[2017-07-17] MEDS ORDERED: ACETAMINOPHEN 500 MG TABLET PO ONE (11:30)
== END 2017-07-17 11:43 | disposition home or self-care (01) ==
LOC: ED 11:24
DX: K08.89 Other specified disorders of teeth and supporting structures (principal); I10 Essential (primary) hypertension; J44.9 Chronic obstructive pulmonary disease, unspecified; K21.9 Gastro-esophageal reflux disease without esophagitis; I25.2 Old myocardial infarction
CPT/HCPCS: 99283

== ENCOUNTER 2017-08-15 07:48 | Emergency (ER) | payer MEDICAID ==
[~2017-08-15] VITALS: Ht 180.3 cm; Wt 89.0 kg
[~2017-08-15 07:48] MED LIST changes: +RANI150T23 PO; -RANI150T8 PO
[2017-08-15 07:54] VITALS: BP 124/88
== END 2017-08-15 08:59 | disposition home or self-care (01) ==
LOC: ED 08:37
DX: K02.9 Dental caries, unspecified (principal); I25.10 Atherosclerotic heart disease of native coronary artery without angina pectoris; J44.9 Chronic obstructive pulmonary disease, unspecified; G89.29 Other chronic pain; I10 Essential (primary) hypertension; F17.210 Nicotine dependence, cigarettes, uncomplicated
CPT/HCPCS: 99283

== ENCOUNTER 2017-10-24 21:08 | Emergency (ER) | payer MEDICAID ==
[~2017-10-24] VITALS: Ht 180.3 cm; Wt 89.4 kg
[2017-10-24 21:11] VITALS: BP 130/86
== END 2017-10-24 21:41 | disposition home or self-care (01) ==
LOC: ED 21:35
DX: K02.9 Dental caries, unspecified (principal); K08.89 Other specified disorders of teeth and supporting structures; I25.10 Atherosclerotic heart disease of native coronary artery without angina pectoris; K21.9 Gastro-esophageal reflux disease without esophagitis; I25.2 Old myocardial infarction; I10 Essential (primary) hypertension; J44.9 Chronic obstructive pulmonary disease, unspecified
CPT/HCPCS: 99283

== ENCOUNTER 2018-10-10 07:59 | Emergency (ER) | payer MEDICAID ==
[~2018-10-10] VITALS: Ht 180.3 cm; Wt 91.0 kg
[~2018-10-10 07:59] MED LIST changes: -ASPI-621 PO; +ASPI81TA45 PO; +METF500T17 PO; -NITR0.4T SL; +NITR0.4T41 SL; +SENN-177 PO; -SENN1TAB7 PO; -SPIR25TA3 PO; +SPIR25TA5 PO
[2018-10-10] MEDS ORDERED: HYDROcodone/APAP 5/325 TABLET PO ONE (08:30)
[2018-10-10 08:38] LABS: BASOPHILS # (AUTO) 0.03 x10^3/uL (0-0.1); BASOPHILS % (AUTO) 0 % (0-1); EOSINOPHILS # (AUTO) 0.19 x10^3/uL (0-0.4); EOSINOPHILS % (AUTO) 3 % (1-7); LYMPHOCYTES # (AUTO) 1.28 x10^3/uL (1-3.4); LYMPHOCYTES % (AUTO) 20 % (22-44); MD NO; MEAN CORPUSCULAR HEMOGLOBIN 30.3 pg (27.5-34.5); MEAN CORPUSCULAR HGB CONC 33.7 g/dL (33.2-36.2); MEAN CORPUSCULAR VOLUME 89.8 fL (81-97); MEAN PLATELET VOLUME 10.1 fL (7.4-10.4); MONOCYTES # (AUTO) 0.74 x10^3/uL (0.2-0.8); MONOCYTES % (AUTO) 12 % (2-9); NEUTROPHILS # (AUTO) 4.12 x10^3/uL (1.8-6.8); NEUTROPHILS % (AUTO) 65 % (42-75); PLATELET COUNT 121 x10^3/uL (130-400); RED CELL DISTRIBUTION WIDTH 12.9 % (9.4-14.8)
--- NOTE | 2018-10-10 08:41 | NUR ---
PT PRESENTS WITH C/O OF BLOOD IN URINE. PT STATES IT STARTED THIS MORNING AND HIS PAIN IS A 8/10. PT ALSO REPORTS THAT HE HAS AN EXTENSIVE CARDIAC HX WITH MULTIPLE CO'S IN 2017. STENTS PLACED BY .
[2018-10-10 08:50] LABS: ALBUMIN 3.9 g/dL (3.4-5.0); ANION GAP 8 mmol/L (5-15); CHLORIDE 104 mmol/L (98-107); CREATININE 1.24 mg/dL (0.7-1.3)
--- NOTE | 2018-10-10 08:55 | NUR ---
PT WENT TO [facility], WILL MEDICATE FOR PAIN WHEN HE COMES BACK.
[2018-10-10] MEDS ORDERED: HYDROcodone/APAP 5/325 TABLET ONE (09:04)
--- NOTE | 2018-10-10 09:17 | NUR ---
PT BACK FROM [facility]. PT MEDICATED FOR PAIN. VSS. NAD. CALL LIGHT IN REACH.
[2018-10-10 09:26] LABS: MICROSCOPIC INDICATED
[2018-10-10 09:30] LABS: CULTURE INDICATED? YES
[2018-10-10 10:26] VITALS: BP 107/66
== END 2018-10-10 10:14 ==
LOC: ED 09:21
DX: R31.0 Gross hematuria (principal); R73.9 Hyperglycemia, unspecified; J44.9 Chronic obstructive pulmonary disease, unspecified; K21.9 Gastro-esophageal reflux disease without esophagitis; I25.10 Atherosclerotic heart disease of native coronary artery without angina pectoris; I10 Essential (primary) hypertension; I25.2 Old myocardial infarction; Z72.89 Other problems related to lifestyle; Z91.040 Latex allergy status; Z87.01 Personal history of pneumonia (recurrent)
CPT/HCPCS: 36415; 76870; 80048; 81001; 82040; 85025; 87086; 93975; 99284

== ENCOUNTER 2018-10-11 17:34 | Emergency (ER) | payer MEDICAID ==
[~2018-10-11] VITALS: Ht 180.3 cm; Wt 89.9 kg
[2018-10-11] MEDS ORDERED: ONDANSETRON 2MG/ML, 2ML IVPush ONE (18:30)
[2018-10-11] MEDS ORDERED: SODIUM CHLORIDE FLUSH 10ML SYR IVF ONE (18:30)
--- NOTE | 2018-10-11 18:31 | NUR ---
HEMETURIA, AND TENDER TESTICLES X 2 DAYS. RIGHT FLANK PAIN THAT STARTED TODAY. PAIN 10/10 IN RIGHT FLANK.
[2018-10-11 18:46] LABS: MICROSCOPIC INDICATED
[2018-10-11] MEDS ORDERED: HYDROmorphone 2 MG/ML, 1ML ONE ×2 (18:46→19:55)
[2018-10-11] MEDS ORDERED: ONDANSETRON 2MG/ML, 2ML ONE (18:47)
[2018-10-11 18:48] LABS: CULTURE INDICATED? YES
[2018-10-11] MEDS: HYDROmorphone 2 MG/ML, 1ML IVPush PRN ×2 (19:00→19:57)
[2018-10-11 19:03] VITALS: BP 128/87
--- NOTE | 2018-10-11 19:04 | NUR ---
PT MEDICATED FOR PAIN PER EMAR. PT REPORTS PAIN IN RIGHT FLANK HAS IMPROVED FROM 10/10 TO 3/10. PT RESTING ON GURNEY. NO ACUTE DISTRESS NOTED.
--- NOTE | 2018-10-11 19:10 | NUR ---
REPORT FROM AAMIR MOLINA. PT RESTING WITH NO NEEDS AT THIS TIME. CALL LIGHT IN REACH
--- NOTE | 2018-10-11 20:05 | NUR ---
pT MEDICATED FOR PAIN. PT VERBALIZED UNDERSTANDING OF DISCHARGE INSTRUCTIONS. PT GETTING DRESSED.
== END 2018-10-11 20:13 | disposition home or self-care (01) ==
LOC: ED 18:35
DX: N20.2 Calculus of kidney with calculus of ureter (principal); R31.9 Hematuria, unspecified; I25.2 Old myocardial infarction; J44.9 Chronic obstructive pulmonary disease, unspecified; I25.10 Atherosclerotic heart disease of native coronary artery without angina pectoris; I11.9 Hypertensive heart disease without heart failure; E11.9 Type 2 diabetes mellitus without complications; Z90.49 Acquired absence of other specified parts of digestive tract; F17.200 Nicotine dependence, unspecified, uncomplicated
CPT/HCPCS: 74176; 81001; 87086; 96374; 96375; 96376; 99284; J1170; J2405

== ENCOUNTER 2018-11-02 05:22 | Emergency (ER) | payer MEDICAID ==
[~2018-11-02] VITALS: Ht 180.3 cm; Wt 91.0 kg
--- NOTE | 2018-11-02 05:48 | NUR ---
PT HERE FOR LEFT FLANK PAIN. HX OF KIDNEY STONES. PT UP TO BATHROOM FOR UA.
[2018-11-02] MEDS ORDERED: ONDANSETRON 2MG/ML, 2ML ONE (05:56)
[2018-11-02] MEDS ORDERED: HYDROmorphone 2 MG/ML, 1ML ONE ×2 (05:58→07:02)
[2018-11-02] MEDS ORDERED: SODIUM CHLORIDE FLUSH 10ML SYR IVF ONE (06:00)
[2018-11-02] MEDS ORDERED: ONDANSETRON 2MG/ML, 2ML IVPush ONE (06:00)
[2018-11-02] MEDS: HYDROmorphone 2 MG/ML, 1ML IVPush PRN ×2 (06:02→07:10)
[2018-11-02 06:18] LABS: MICROSCOPIC AUTO
--- NOTE | 2018-11-02 06:18 | NUR ---
PIV PLACED. PT MEDICATED FOR PAIN. PT TO CT
[2018-11-02 06:19] LABS: CULTURE INDICATED? YES
--- NOTE | 2018-11-02 06:52 | NUR ---
BEDSIDE REPORT FROM YANICK MOLINA. PT RESTING IN RNEY ON 2L O2, PT ON MONITOR. NO NEEDS AT THIS TIME, AWAITING RAD RESULTS
[2018-11-02 08:27] VITALS: BP 111/72
== END 2018-11-02 08:37 | disposition home or self-care (01) ==
LOC: ED 05:39
DX: N30.00 Acute cystitis without hematuria (principal); E11.9 Type 2 diabetes mellitus without complications; I25.10 Atherosclerotic heart disease of native coronary artery without angina pectoris; I10 Essential (primary) hypertension; J44.9 Chronic obstructive pulmonary disease, unspecified; F17.210 Nicotine dependence, cigarettes, uncomplicated
CPT/HCPCS: 74176; 81001; 87086; 96374; 96375; 96376; 99284; J1170; J2405

== ENCOUNTER 2018-12-03 19:38 | Emergency (ER) | payer MEDICAID, OTHER ==
[~2018-12-03] VITALS: Ht 180.3 cm; Wt 89.9 kg
[2018-12-03 21:58] VITALS: BP 109/69
== END 2018-12-03 22:02 | disposition home or self-care (01) ==
LOC: ED 20:46
DX: N20.0 Calculus of kidney (principal); E11.65 Type 2 diabetes mellitus with hyperglycemia; I25.10 Atherosclerotic heart disease of native coronary artery without angina pectoris; K21.9 Gastro-esophageal reflux disease without esophagitis; I25.2 Old myocardial infarction; J44.9 Chronic obstructive pulmonary disease, unspecified; Z90.89 Acquired absence of other organs; Z90.49 Acquired absence of other specified parts of digestive tract; Z95.5 Presence of coronary angioplasty implant and graft
CPT/HCPCS: 36415; 76770; 80053; 81001; 85025; 87086; 96374; 96375; 99284; J1885; J2270; J2405

== ENCOUNTER → 2019-10-15 | Outpatient (CLI) | payer MEDICAID ==
[~2019-10-15] MED LIST changes: -HEPA500041 SC; +LIDO15SO2 MM; -LIDO15SO3 MM; +MULT-449 PO; -MULT1TAB60 PO; +RANI-244 PO; +RANI-467 PO; -RANI150T23 PO; -RANI75TA12 PO; +[UNRECOGNIZED DRUG - CODE] SC
== END | disposition home or self-care (01) ==
LOC: CFH 13:31
PROVIDERS: ATTEND Internal Medicine Cardiovascular Disease
DX: I08.3 Combined rheumatic disorders of mitral, aortic and tricuspid valves (principal); I10 Essential (primary) hypertension; E78.5 Hyperlipidemia, unspecified; E11.9 Type 2 diabetes mellitus without complications; Z87.891 Personal history of nicotine dependence
CPT/HCPCS: 93306